=== PATIENT | female | born 1940 | race Caucasian/White ===

== ENCOUNTER 2016-12-31 13:32 | Emergency (ER) | payer OTHER ==
[~2016-12-31] VITALS: Ht 149.9 cm; Wt 73.2 kg
[~2016-12-31 13:32] MED LIST: ACET500T84 PO; DOCU100T7 PO; OMEP20CA16 PO; RANI-347 PO; REG5/5 PO; VERA240T94 PO; [UNRECOGNIZED DRUG - CODE]; [UNRECOGNIZED DRUG - OTHER]
[2016-12-31 13:45] VITALS: Ht 149.9 cm; Wt 73.2 kg
[2016-12-31] MEDS ORDERED: ACETAMINOPHEN 500 MG TAB PO STA (17:37)
--- NOTE | 2016-12-31 18:52 | RADRPT ---
PROCEDURE: CT Brain without contrast. CLINICAL INDICATION: Trauma. Headache. TECHNIQUE: A CT of the brain without contrast was performed utilizing axial sections from the skul l base through the vertex. The patient was scanned without intravenous contrast enhancement. Sagitta l and coronal reformatted images were obtained using the data from the axial images. Total exam DLP is 634.23 mGy-cm. CTDIvol is 38.20 mGy. One or more of the following dose reduction techniques we re used: Automated exposure control, adjustment of the mA and/or kV according to patient size, use o f iterative reconstruction technique. COMPARISON: None available FINDINGS: There is normal kumar-white matter differentiation. There is mild enlargement of the ventricles and subarachnoid spaces consistent with atrophy. There is no intracranial hemorrhage or space-occupying lesion. There is no skull fracture or lytic lesion. IMPRESSION: 1. Mild atrophy. 2. No intracranial hemorrhage. 3. Otherwise normal noncontrast CT scan of the brain. RPTAT: QQ .Kirill Dawn MD, MD Date Time Electronically viewed and signed by .Kirill Dawn MD, on 12/31/2016 18:51 .R/
--- NOTE | 2016-12-31 18:56 | RADRPT ---
PROCEDURE: CT cervical spine without contrast. CLINICAL INDICATION: Trauma, neck pain. TECHNIQUE: A CT of the cervical spine was performed without intravenous contrast. Coronal and sag ittal reformats were generated. CTDIvol: 22.26 mGy. DLP: 114.62 mGy-cm. COMPARISON: No prior studies are available for comparison. FINDINGS: There is a normal cervical lordosis. There is grade 1 degenerative C3 and C4 anterolisthesis. The v ertebral body heights are maintained. No fracture or subluxation is seen. The prevertebral soft ti ssues are normal. There is borderline spinal canal stenosis at C3-C4 and C4-C5. Mild spinal canal stenosis is noted a t C5-C6 secondary to disk osteophyte. Moderate left neural foraminal narrowing is noted at C3-C4 and C4-C5. There is severe bilateral neural foraminal narrowings at C5-C6 secondary to uncovertebral j oint hypertrophy. The soft tissue structures of the neck are unremarkable. There is scarring at the right lung apex. IMPRESSION: 1. No fracture or subluxation of the cervical spine. 2. Borderline spinal canal stenosis and moderate left neural foraminal narrowings at C3-C4 and C4-C 5. 3. Mild spinal canal stenosis and severe bilateral neural foraminal narrowings at C5-C6. RPTAT: HTAR .Arnaud Oliveira MD, MD Date Time Electronically viewed and signed by .Arnaud Oliveira MD, on 12/31/2016 18:55 .R/
[2016-12-31] MEDS ORDERED: ACET500C5 PO (19:13)
--- NOTE | 2016-12-31 19:16 | ERD ---
ER Documentation Chief Complaint Date/Time DATE: 12/31/16 TIME: 19:15 Chief Complaint Pt with GLF hit a metal stand. pt presents with [place]. HPI This [id number] female presents with her daughter after tripping today and hitting the top of her head. There is some swelling on the top of her head. There is no history of loss of consciousness, vomiting, visual changes, weakness , abnormal behavior. Fall was due to trip and there is no history of shortness of breath or chest pain or additional causes of fall. ROS All systems reviewed and are negative except as per history of present illness. Medications Home Meds Active Scripts Acetaminophen* (Tylophen*) 500 Mg Capsule, 1 CAP PO Q6H Y for PAIN AND OR ELEVATED TEMP, #15 CAP Prov:ABE ROLDAN MD 12/31/16 Reported Medications Metoclopramide Hcl (Metoclopramide) 5 Mg/5 Ml Soln, 60 MG PO DAILY 02/11/13 Acetaminophen (Q-Pap Extra Strength) 500 Mg Tablet, 500 MG PO DAILY 02/11/13 Docusate Sodium (Docusate Sodium) 100 Mg Tablet, 100 MG PO DAILY 02/11/13 Omeprazole* (Omeprazole*) 20 Mg Capsule.dr, 20 MG PO DAILY 10/04/12 [Colipax] No Conflict Check, NEEDED 12/13/11 Ranitidine Hcl* (Ranitidine Hcl*) 75 Mg Tablet, 75 MG PO NEEDED 12/13/11 Verapamil Hcl* (Verapamil Hcl*) 240 Mg Tablet.sa, 240 MG PO DAILY 12/13/11 Verapamil Hcl (Calan Sr) 240 Mg Tablet.sa 02/12/11 Allergies Allergies: Coded Allergies: morphine (Verified Allergy, Mild, RASH, 06/11/12) PMhx/Soc History of Surgery: Yes Anesthesia Reaction: No Hx Neurological Disorder: No Hx Respiratory Disorders: No Hx Cardiac Disorders: Yes (HTN) Hx Psychiatric Problems: No Hx Miscellaneous Medical Probl: Yes Hx Alcohol Use: No Hx Substance Use: No Hx Tobacco Use: No Smoking Status: Never smoker Physical Exam Vitals Vital Signs Date Time Temp Pulse Resp B/P Pulse Ox O2 Delivery O2 Flow Rate FiO2 12/31/16 13:45 98.2 75 16 163/91 95 Physical Exam Const: [] Alert, [id number] Head: There is a small hematoma in the right frontoparietal area. There is no appreciable step-offs Eyes: Normal Conjunctiva ENT: Normal External Ears, Nose and Mouth. Neck: Full range of motion..~ No meningismus. Neck nontender without deformities Resp: Clear to auscultation bilaterally Cardio: Regular rate and rhythm, no murmurs Abd: Soft, non tender, non distended. Normal bowel sounds Skin: No petechiae or rashes Back: No midline or flank tenderness Ext: No cyanosis, or edema Neur: Awake and alert. Normal gait. No appreciable focal neurologic deficits per Psych: Normal Mood and Affect Results 24 hrs Current Medications Medications (Trade) Dose Ordered Sig/Soham Route PRN Reason Start Time Stop Time Status Last Admin Dose Admin Acetaminophen (Tylenol Tab) 500 mg ONCE STAT PO 12/31/16 17:37 12/31/16 17:38 DC 12/31/16 17:42 Procedures/MDM CT brain and cervical spine shows no acute abnormality such as bleeding or fracture. There are degenerative changes of the cervical spine. Patient presents with signs of head injury without evidence of bleeding, fracture, neurologic deficit, additional findings to her fall today. She will be discharged home with prescription of Tylenol and further observation. The child was stable with no new complaints during the ER course. The patient was stable with no new complaints during the ER course. Clinically, there is no current evidence to suggest meningitis, sepsis, acute abdomen, pneumonia, acute coronary syndrome, pulmonary embolism, or any other emergent condition appearing to require further evaluation or hospitalization. The patient should certainly return for any new or worsening symptoms per the aftercare instructions. They should otherwise follow-up with her primary care doctor for reevaluation this week. Departure Diagnosis: Primary Impression: Acute head injury Encounter type: initial encounter Qualified Code: S09.90XA - Acute head injury, initial encounter Condition: Stable Patient Instructions: HEAD INJURY, No Wake-Up (Adult) Additional Instructions: Examines normal hoy. Cheque otro vez con yang doctor primario en el proximo cruz or regresa para mas o nueva simptomas. ABE ROLDAN MD Dec 31, 2016 19:16
[2016-12-31 19:29] VITALS: BP 131/78; PULSE 74; RESP 18
== END 2016-12-31 19:30 | disposition home or self-care (01) ==
LOC: FTE 13:32
DX: S09.90XA Unspecified injury of head, initial encounter (principal); I10 Essential (primary) hypertension; R51 Headache; W01.198A Fall on same level from slipping, tripping and stumbling with subsequent striking against other object, initial encounter; Y92.9 Unspecified place or not applicable
CPT/HCPCS: 70450; 72125; Z7502; Z7610

== ENCOUNTER 2017-05-01 18:14 | Emergency (ER) | payer OTHER ==
[~2017-05-01] VITALS: Wt 80.0 kg
[~2017-05-01 18:14] MED LIST changes: +ACET500C5 PO
[2017-05-01] MEDS ORDERED: IBUPROFEN 600 MG TAB PO ONE (20:30)
--- NOTE | 2017-05-01 21:11 | RADRPT ---
PROCEDURE: XR Hip. CLINICAL INDICATION: Right hip pain. TECHNIQUE: AP and frog lateral views of the right hip were performed. COMPARISON: None. FINDINGS: There is normal mineralization and alignment. 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 No fracture or osseous lesion is identified. There are normal joints wi thout evidence of arthritis or effusion. The soft tissues are unremarkable. IMPRESSION: No acute fracture. RPTAT: UU Physician Abimael Date Time Electronically viewed and signed by Physician Abimael on 05/01/2017 21:10 RS/
[2017-05-01] MEDS ORDERED: NAPR-260 PO (21:18)
--- NOTE | 2017-05-02 00:50 | ERD ---
ER Documentation Chief Complaint Date/Time DATE: 05/02/17 TIME: 00:47 Chief Complaint RIGHT HIP PAIN S/P GLF 2 WEEKS AGO HPI This patient is a 68-year-old female with past medical history of hypertension presenting to the emergency department with complaints of right hip pain after a ground-level fall approximately 2 weeks ago. The patient went to her primary care doctor and was prescribed pain medication but no x-ray images were obtained. The patient has had difficulty ambulating alone and has had to use a walker. Pain is worsening now. The patient denies any loss of bowel or bladder function, back pain, loss of consciousness, or other symptoms or injuries. ROS All systems reviewed and are negative except as per history of present illness. Medications Home Meds Active Scripts Naproxen* (Naprosyn*) 500 Mg Tablet, 500 MG PO BID Y for PAIN AND/OR INFLAMMATION, #30 TAB Prov:YASSINE PETTY PA-C 05/01/17 Acetaminophen* (Tylophen*) 500 Mg Capsule, 1 CAP PO Q6H Y for PAIN AND OR ELEVATED TEMP, #15 CAP Prov:ABE ROLDAN MD 12/31/16 Reported Medications Metoclopramide Hcl (Metoclopramide) 5 Mg/5 Ml Soln, 60 MG PO DAILY 02/11/13 Acetaminophen (Q-Pap Extra Strength) 500 Mg Tablet, 500 MG PO DAILY 02/11/13 Docusate Sodium (Docusate Sodium) 100 Mg Tablet, 100 MG PO DAILY 02/11/13 Omeprazole* (Omeprazole*) 20 Mg Capsule.dr, 20 MG PO DAILY 10/04/12 [Colipax] No Conflict Check, NEEDED 12/13/11 Ranitidine Hcl* (Ranitidine Hcl*) 75 Mg Tablet, 75 MG PO NEEDED 12/13/11 Verapamil Hcl* (Verapamil Hcl*) 240 Mg Tablet.sa, 240 MG PO DAILY 12/13/11 Verapamil Hcl (Calan Sr) 240 Mg Tablet.sa 02/12/11 Allergies Allergies: Coded Allergies: morphine (Verified Allergy, Mild, RASH, 06/11/12) PMhx/Soc History of Surgery: Yes (hernia repair x6, appendectomy) Anesthesia Reaction: No Hx Neurological Disorder: No Hx Respiratory Disorders: No Hx Cardiac Disorders: Yes (HTN) Hx Psychiatric Problems: No Hx Miscellaneous Medical Probl: Yes (gastritis) Hx Alcohol Use: No Hx Substance Use: No Hx Tobacco Use: No Smoking Status: Never smoker Physical Exam Vitals Vital Signs Date Time Temp Pulse Resp B/P Pulse Ox O2 Delivery O2 Flow Rate FiO2 05/01/17 18:17 98.4 74 17 135/89 96 Physical Exam Const: Nontoxic, well-appearing female in no acute distress. Head: Atraumatic Eyes: Normal Conjunctiva ENT: Normal External Ears, Nose and Mouth. Neck: Full range of motion..~ No meningismus. Resp: Clear to auscultation bilaterally Cardio: Regular rate and rhythm, no murmurs Abd: Soft, non tender, non distended. Normal bowel sounds Skin: No petechiae or rashes Back: No midline or flank tenderness Ext: The patient has limited flexion and extension of the right hip secondary to pain. The right lower extremity does not appear shortened or externally rotated. There is no significant bruising noted about the hip joint. Neur: Awake and alert Psych: Normal Mood and Affect Results 24 hrs Current Medications Medications (Trade) Dose Ordered Sig/Soham Route PRN Reason Start Time Stop Time Status Last Admin Dose Admin Ibuprofen (Motrin) 600 mg ONCE ONCE PO 05/01/17 20:30 05/01/17 20:31 DC 05/01/17 20:13 [place] [id number] Radiology Main Line: [phone] DIAGNOSTIC IMAGING REPORT Patient: HIRAM VILLALTA : 1940 Age: 76 Sex: F MR #: [id number] DOS: 05/01/17 0000 Ordering MD: YASSINE PETTY PA-C Location: [facility] Room/Bed: PROCEDURE: XR Hip. CLINICAL INDICATION: Right hip pain. TECHNIQUE: AP and frog lateral views of the right hip were performed. COMPARISON: None. FINDINGS: There is normal mineralization and alignment. Mild coxa profunda. 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 No fracture or osseous lesion is identified. There are normal joints without evidence of arthritis or effusion. The soft tissues are unremarkable. IMPRESSION: No acute fracture. RPTAT: UU Leonor Lange Physician Date Time Electronically viewed and signed by Leonor Lange Physician on 05/01/2017 21:10 RS/ CC: YASSINE PETTY PA-C Procedures/MDM 68-year-old female presenting to the emergency department with complaints of right hip pain after ground-level fall approximately 2 weeks ago. X-ray images were negative for hip fracture or other acute abnormalities. These were interpreted by the radiologist. The patient was medicated with ibuprofen in the department. The patient was stable for outpatient management with a prescription for naproxen. She was advised to have close follow-up with a primary care physician and possibly an technician inventory specialist or physical therapist. She understood and agreed with the discharge plan and diagnosis. Strict ER return precautions were discussed. I will suspicion for hip fracture , septic joint, or other osseous abnormalities or emergent conditions. Departure Diagnosis: Primary Impression: Hip pain Condition: Fair Patient Instructions: How Your Hip Works, Hip Precautions, Hip Strain Additional Instructions: No mas mejor en 2-3 cruz, regresar. Mas peor en 24 horas, regresear rapidamente. Ir a doctor primario in 5-7 cruz. Usar instrucciones cuando verónica medicamento. YASSINE PETTY PA-C May 02, 2017 00:50
== END 2017-05-01 22:04 | disposition home or self-care (01) ==
LOC: FTE 18:14
DX: M25.551 Pain in right hip (principal); I10 Essential (primary) hypertension
CPT/HCPCS: 73510; Z7610

== ENCOUNTER → 2018-12-23 | Outpatient (CLI) | payer OTHER ==
[~2018-12-23] MED LIST changes: +AMLO5TAB4 PO; +ASPI-1044 PO; +GABA300C16 PO; +HYDR25TA6 PO; +LOSA50TA14 PO; +NAPR-985 PO; +OXYC-481 PO; +PANT40TA4 PO; -RANI-347 PO; +RANI-513 PO
--- NOTE | 2018-12-24 08:07 | RADRPT ---
PROCEDURE: XR Knees. CLINICAL INDICATION: Preoperative. Bilateral knee pain. TECHNIQUE: Total of eight views. Weightbearing frontal, oblique, and lateral views of the both kne es. Patellar views of both knees. COMPARISON: Left knee radiographs dated 07/19/2007. FINDINGS: There is no fracture or dislocation. Vascular calcifications are present consistent with atherosclerosis. There are degenerative changes with osteophytes arising from all 3 joint compartment margins bilatera lly. There is bilateral lateral joint compartment narrowing and deformity with right worse than left. There is no lytic or blastic lesion. There is no radiopaque foreign body. IMPRESSION: 1. Severe degenerative changes of both knees with right worse than left. 2. Atherosclerosis. 3. Otherwise unremarkable images of both knees. RPTAT: QQ .Kirill Dawn MD, Date Time Electronically viewed and signed by .Kirill Dawn MD, on 12/24/2018 08:07 .R/
--- NOTE | 2018-12-24 08:09 | RADRPT ---
PROCEDURE: Limited x-ray of both lower extremities. CLINICAL INDICATION: Bilateral leg pain. TECHNIQUE: Single frontal view of both lower extremities was obtained from the hips to the calves. COMPARISON: None. FINDINGS: The right femur measures 51 cm. The left femur measures 54 cm. The right tibia measures 43 cm. The left tibia measures 43 cm. There are severe degenerative changes of both knees with associated valgus deformity. IMPRESSION: 1. Leg length measurements as described above. 2. Severe degenerative changes of both knees with associated valgus deformity. RPTAT: QQ .Kirill Dawn MD, MD Date Time Electronically viewed and signed by .Kirill Dawn MD, on 12/24/2018 08:09 .R/
== END | disposition home or self-care (01) ==
LOC: HKI 13:34
PROVIDERS: ATTEND Orthopaedic Surgery Adult Reconstructive Orthopaedic Surgery
DX: M25.569 Pain in unspecified knee (principal); M17.10 Unilateral primary osteoarthritis, unspecified knee
CPT/HCPCS: 73564; 77073

== ENCOUNTER 2018-12-24 06:36 | Inpatient (IN) | payer OTHER ==
[2018-12-24] VITALS (33 sets, daily range): BP systolic 95–157; BP diastolic 46–79; PULSE 58–92; RESP 13–23; Ht 152.4 cm; Wt 72.9 kg
[~2018-12-24] VITALS: Ht 152.4 cm; Wt 72.9 kg
[~2018-12-24 06:36] MED LIST changes: -AMLO5TAB4 PO; -ASPI-1044 PO; -GABA300C16 PO; -HYDR25TA6 PO; -LOSA50TA14 PO; -OXYC-481 PO; -PANT40TA4 PO
[2018-12-24] MEDS ORDERED: ACETAMINOPHEN 500 MG TAB PO ONE (09:00)
[2018-12-24] MEDS ORDERED: DEXAMETHASONE 4 MG/ML 1 ML INJ IV ONE (09:00)
[2018-12-24] MEDS ORDERED: TOTAL KNEE REPLACEMENT PAIN COCKTAIL IRR ONE ×5 (09:00)
[2018-12-24] MEDS ORDERED: LANSOPRAZOLE 30 MG CAP PO ONE (09:00)
[2018-12-24] MEDS ORDERED: ONDANSETRON 4 MG INJ IV ONE (09:00)
[2018-12-24] MEDS ORDERED: GABAPENTIN 300 MG CAP PO ONE (09:00)
[2018-12-24] MEDS ORDERED: TRANEXAMIC ACID 1GM/100ML(PMX) 100 ML PRE-OP X1 IVPB ONE (09:00)
[2018-12-24] MEDS ORDERED: LACTATED RINGER'S 1,000 ML IV* SCH (09:00)
[2018-12-24] MEDS ORDERED: CELECOXIB 200 MG CAP PO ONE (09:00)
[2018-12-24] MEDS ORDERED: CEFAZOLIN 2 GM/50 ML (PMX) 50 ML IVPB ONE (09:00)
[2018-12-24] MEDS ORDERED: TRANEXAMIC ACID 1GM/100ML(PMX) 100 ML INTRA-OP X1 IVPB ONE (09:00)
[2018-12-24] MEDS ORDERED: AMLO5TAB4 PO (10:53)
[2018-12-24] MEDS ORDERED: HYDR25TA6 PO (10:53)
[2018-12-24] MEDS ORDERED: LOSA50TA14 PO (10:53)
[2018-12-24] MEDS ORDERED: GABA300C16 PO (10:54)
[2018-12-24] MEDS ORDERED: ACETAMINOPHEN 1000MG/100ML IV 100 ML IVPB ONE (12:00)
[2018-12-24] MEDS ORDERED: BACITRACIN 50000 UNITS INJ ONE (12:03)
[2018-12-24] MEDS ORDERED: POLYMYXIN/BACITRACIN 1L IRRIG ONE (12:03)
--- NOTE | 2018-12-24 12:24 | PREAC ---
Date/Time of Note Date/Time of Note DATE: 12/24/18 TIME: 12:24 Anesthesia Eval and Record Evaluation Time Pre-Procedure Interview DATE: 12/24/18 TIME: 12:24 Age 78 Sex female NPO: 8 hrs Preoperative diagnosis Knee OA Planned procedure TKR Past Medical History Past Medical History: Includes Cardio: HTN GI: Obesity Surgery & Anesthesia Issues No known issue Meds Anticoagulation: No Beta Jailyn within 24 hr: No Reason Beta Jailyn not given: Pt. not on B-Jailyn Reported Medications Gabapentin* (Gabapentin*) 300 Mg Capsule, 300 MG PO QHS, #60 CAP 12/24/18 Losartan Potassium* (Losartan Potassium*) 50 Mg Tablet, 50 MG PO DAILY, TAB 12/24/18 Hydrochlorothiazide* (Hydrochlorothiazide*) 25 Mg Tab, 25 MG PO DAILY, #30 TAB 12/24/18 Amlodipine Besylate* (Norvasc*) 5 Mg Tablet, 5 MG PO DAILY, TAB 12/24/18 Discontinued Reported Medications Metoclopramide Hcl (Metoclopramide) 5 Mg/5 Ml Soln, 60 MG PO DAILY 02/11/13 Acetaminophen (Q-Pap Extra Strength) 500 Mg Tablet, 500 MG PO DAILY 02/11/13 Docusate Sodium (Docusate Sodium) 100 Mg Tablet, 100 MG PO DAILY 02/11/13 Omeprazole* (Omeprazole*) 20 Mg Capsule.dr, 20 MG PO DAILY 10/04/12 [Colipax] No Conflict Check, NEEDED 12/13/11 Ranitidine Hcl* (Ranitidine Hcl*) 75 Mg Tablet, 75 MG PO NEEDED 12/13/11 Verapamil Hcl* (Verapamil Hcl*) 240 Mg Tablet.sa, 240 MG PO DAILY 12/13/11 Verapamil Hcl (Calan Sr) 240 Mg Tablet.sa 02/12/11 Discontinued Scripts Naproxen* (Naprosyn*) 500 Mg Tablet, 500 MG PO BID PRN for PAIN AND/OR INFLAMMATION, #30 TAB Prov:YASSINE PETTY PA-C 05/01/17 Acetaminophen* (Tylophen*) 500 Mg Capsule, 1 CAP PO Q6H PRN for PAIN AND OR ELEVATED TEMP, #15 CAP Prov:ABE ROLDAN MD 12/31/16 Current Medications Lactated Ringer's 1,000 ml @ 125 mls/hr Q8H IV* ; Start 2/19/19 at 09:00; Stop 12/24/18 at 16:59 Meds reviewed: Yes Allergies Coded Allergies: morphine (Verified Allergy, Mild, RASH, 12/24/18) Allergies Reviewed: Yes Labs/Studies Labs Reviewed: Reviewed by anesthesiologist test: Negative Studies: ECG Pre-procedure Exam Last vitals Vital Signs Date Temp Pulse Resp B/P (MAP) Pulse Ox O2 O2 Flow FiO2 Time Delivery Rate 12/24/18 98.5 92 18 157/79 95 Room Air 12:04 (105) Airway: Adequate mouth opening, Adequate thyromental dist Mallampati: Mallampati II Teeth: Normal Lung: Normal Heart: Normal ASA Physical Status ASA physical status: 2 Emergency: None Planned Anesthetic General/MAC: Mask, ETT Neuraxial: Spinal Planned Pain Management Sub-arachniod narcotics Pre-operative Attestations Prior to commencing anesthesia and surgery, the patient was re-evaluated, there was verification of: *The patient's identity *The results of appropriate recent lab work and preoperative vital signs *The above evaluation not changing prior to induction *Anesthetic plan, risk benefits, alternative and complications discussed with patient/family; questions answered; patient/family understands, accepts and wishes to proceed. DIONNE PACHECO Dec 24, 2018 12:24
--- NOTE | 2018-12-24 12:28 | HPN ---
Date/Time of Note Date/Time of Note DATE: 12/24/18 TIME: 12:28 Interval H&P Admission Note Pt. seen H&P reviewed: No system changes Patient denies fever, chills, shortness of breath, chest pain, nausea/vomiting, constipation, diarrhea, numbness, and tingling. MUSCULOSKELETAL: Right extremity Skin intact Sensation intact to light touch in a sural, saphenous, deep peroneal, superficial peroneal, medial and lateral plantar nerve distribution. Motor is intact, patient able to dorsiflex and plantarflex ankle and extend and flex great toe. Dorsalis Pedis pulse +2, Brisk capillary refill. Compartments are soft. Calves non-tender to palpation bilaterally. MYNOR LORD MD Dec 24, 2018 12:28
[2018-12-24] MEDS ORDERED: DIPHENHYDRAMINE 50 MG INJ IV PRN ×2 (12:30→16:30)
[2018-12-24] MEDS ORDERED: METOCLOPRAMIDE 10 MG INJ IV PRN (12:30)
[2018-12-24] MEDS ORDERED: ONDANSETRON 4 MG INJ IV PRN (12:30)
[2018-12-24] MEDS ORDERED: MEPERIDINE 25 MG INJ IV PRN (12:30)
[2018-12-24] MEDS ORDERED: HYDROmorphONE 1 MG/5 ML IV SYRINGE IV PRN ×3 (12:30)
[2018-12-24] MEDS ORDERED: ALBUTEROL 0.083% (NEB) 2.5 MG/3 ML AMP HHN PRN (12:30)
[2018-12-24] MEDS ORDERED: FENTAnyl 50 MCG/ML VIAL IV PRN ×2 (12:30)
[2018-12-24] MEDS ORDERED: MIDAZOLAM 1 MG/ML 2 ML INJ ONE (12:31)
[2018-12-24] MEDS ORDERED: MAGNESIUM HYDROXIDE 30ML CUP PO PRN (16:30)
[2018-12-24] MEDS ORDERED: oxyCODONE 5 MG TAB PO PRN ×2 (16:30)
[2018-12-24] MEDS ORDERED: NACL 0.9% 3 ML SYG IV SCH (16:30)
[2018-12-24] MEDS ORDERED: BISACODYL 10 MG SUPP PR PRN (16:30)
[2018-12-24] MEDS ORDERED: NA PHOSPHATE/BIPHOS 133 ML ENEMA PR PRN (16:30)
[2018-12-24] MEDS ORDERED: NALOXONE (0.4 MG/ML) INJ IV PRN (16:30)
[2018-12-24] MEDS ORDERED: HYDROmorphONE 1 MG/ML SYG IV PRN (16:30)
[2018-12-24] MEDS ORDERED: DOCUSATE SODIUM 100 MG CAP PO ONE (16:30)
--- NOTE | 2018-12-24 16:46 | CONS ---
Assessment/Plan Assessment/Plan Assessment/Plan (Daily) 78 yo obese woman with history of HTN admitted after elevated R knee arthroplasty. #R knee arthroplasty - Agree with admission to [facility], - PT, OT, analgesia per ortho #HTN - Continue home HCTZ, norvasc, losartan #Neuropathy - Continue home gabapentin Will continue to follow. Consultation Date/Type/Reason Admit Date/Time Dec 24, 2018 at 06:36 Date of Consultation: Dec 24, 2018 Type of Consult Internal Medicine Reason for Consultation Postoperative management Requesting Provider: MYNOR LORD MD Date/Time of Note DATE: 12/24/18 TIME: 16:40 Hx of Present Illness Ms. Fatima is an obese 78 yo woman admitted for elective R total knee arthroplasty. She has severe R knee arthritis as well as HTN, GERD, and history of diverticulosis which are managed medically. Postoperatively she is still drowsy from anesthesia, has no complaints. Subjective hx not possible: pt non-verbal Past Medical History HTN GERD History of diverticulosis Osteoporosis Osteoarthritis of the R knee Home Meds Reported Medications Gabapentin* (Gabapentin*) 300 Mg Capsule, 300 MG PO QHS, #60 CAP 12/24/18 Losartan Potassium* (Losartan Potassium*) 50 Mg Tablet, 50 MG PO DAILY, TAB 12/24/18 Hydrochlorothiazide* (Hydrochlorothiazide*) 25 Mg Tab, 25 MG PO DAILY, #30 TAB 12/24/18 Amlodipine Besylate* (Norvasc*) 5 Mg Tablet, 5 MG PO DAILY, TAB 12/24/18 Discontinued Reported Medications Metoclopramide Hcl (Metoclopramide) 5 Mg/5 Ml Soln, 60 MG PO DAILY 02/11/13 Acetaminophen (Q-Pap Extra Strength) 500 Mg Tablet, 500 MG PO DAILY 02/11/13 Docusate Sodium (Docusate Sodium) 100 Mg Tablet, 100 MG PO DAILY 02/11/13 Omeprazole* (Omeprazole*) 20 Mg Capsule.dr, 20 MG PO DAILY 10/04/12 [Colipax] No Conflict Check, NEEDED 12/13/11 Ranitidine Hcl* (Ranitidine Hcl*) 75 Mg Tablet, 75 MG PO NEEDED 12/13/11 Verapamil Hcl* (Verapamil Hcl*) 240 Mg Tablet.sa, 240 MG PO DAILY 12/13/11 Verapamil Hcl (Calan Sr) 240 Mg Tablet.sa 02/12/11 Discontinued Scripts Naproxen* (Naprosyn*) 500 Mg Tablet, 500 MG PO BID PRN for PAIN AND/OR INFLAMMATION, #30 TAB Prov:YASSINE PETTY PA-C 05/01/17 Acetaminophen* (Tylophen*) 500 Mg Capsule, 1 CAP PO Q6H PRN for PAIN AND OR ELEVATED TEMP, #15 CAP Prov:ABE ROLDAN MD 12/31/16 Medications Current Medications Lactated Ringer's 1,000 ml @ 125 mls/hr Q8H IV* ; Start 12/24/18 at 09:00; Stop 12/24/18 at 16:59 Hydromorphone HCl (Dilaudid) 0.2 mg PACU PRN IV MILD PAIN 1-3; Start 12/24/18 at 12:30; Stop 12/24/18 at 18:00 Hydromorphone HCl (Dilaudid) 0.4 mg PACU PRN IV MOD PAIN 4-6 Last administered on 12/24/18at 16:26; Admin Dose 0.4 MG; Start 12/24/18 at 12:30; Stop 12/24/18 at 18:00 Hydromorphone HCl (Dilaudid) 0.6 mg PACU PRN IV SEVERE PAIN 7-10; Start 12/24/18 at 12:30; Stop 12/24/18 at 18:00 Fentanyl (Sublimaze) 25 mcg PACU ORDER PRN IV MILD PAIN 1-3; Start 12/24/18 at 12:30; Stop 12/24/18 at 18:00 Fentanyl (Sublimaze) 50 mcg PACU ORDER PRN IV MOD PAIN 4-6; Start 12/24/18 at 12:30; Stop 12/24/18 at 18:00 Ondansetron HCl (Zofran Inj) 4 mg PACU ORDER PRN IV NAUSEA/VOMITING; Start 12/24/18 at 12:30; Stop 12/24/18 at 18:00 Metoclopramide HCl (Reglan) 10 mg PACU ORDER PRN IV NAUSEA/VOMITING; Start 12/24/18 at 12:30; Stop 12/24/18 at 18:00 Albuterol (Proventil 0.083% (Neb)) 2.5 mg PACU ORDER PRN HHN .WHEEZING; Start 12/24/18 at 12:30; Stop 12/24/18 at 18:00 Meperidine HCl (Demerol) 25 mg PACU ORDER PRN IV .RIGORS; Start 12/24/18 at 12:30; Stop 12/24/18 at 18:00 Diphenhydramine HCl (Benadryl) 25 mg PACU ORDER PRN IV .PRURITUS; Start 12/24/18 at 12:30; Stop 12/24/18 at 18:00 Lactated Ringer's 1,000 ml @ 80 mls/hr [id number] IV ; Start 12/24/18 at 16:20; Status UNV IV Flush (NS 3 ml) 3 ml PER PROTOCOL IV ; Start 12/24/18 at 16:30; Status UNV Oxycodone HCl (Roxicodone) 15 mg Q4H PRN PO .PAIN; Start 12/24/18 at 16:30; Status UNV Oxycodone HCl (Roxicodone) 10 mg Q4H PRN PO .PAIN; Start 12/24/18 at 16:30; Status UNV Oxycodone HCl (Roxicodone) 5 mg Q4H PRN PO .PAIN; Start 12/24/18 at 16:30; Status UNV Hydromorphone HCl (Dilaudid) 1 mg Q3H PRN IV .BREAKTHROUGH PAIN; Start 12/24/18 at 16:30; Status UNV Acetaminophen (Tylenol Tab) 1,000 mg Q8 PO ; Start 12/25/18 at 22:00; Status UNV Acetaminophen 100 ml @ 400 mls/hr Q8H IVPB ; Start 12/24/18 at 16:30; Stop at 08:44; Status UNV Ondansetron HCl (Zofran Inj) 4 mg Q4H PRN IV NAUSEA/VOMITING; Start 12/25/18 at 16:30; Status UNV Cefazolin Sodium/ Dextrose 50 ml @ 100 mls/hr Q8H IVPB ; Start 12/24/18 at 16:30; Stop 12/25/18 at 08:59; Status UNV Gabapentin (Neurontin) 300 mg QHS PO ; Start 12/24/18 at 21:00; Status UNV Dexamethasone (Decadron) 10 mg ONCE ONCE IV ; Start 12/25/18 at 07:00; Stop 12/25/18 at 07:01; Status UNV Pantoprazole (Protonix Tab) 40 mg DAILY@06 PO ; Start 12/26/18 at 06:00; Status UNV Docusate Sodium (Colace) 200 mg NOW ONCE PO ; Start 12/24/18 at 16:30; Stop 12/24/18 at 16:31; Status UNV Docusate Sodium (Colace) 200 mg BID PO ; Start 12/25/18 at 09:00; Stop 12/28/18 at 08:59; Status UNV Simethicone (Mylicon) 80 mg TID PRN PO .GAS; Start 12/24/18 at 16:30; Status UNV Senna/Docusate Sodium (Senokot-S) 2 tab BID PRN PO .CONSTIPATION; Start 12/24/18 at 16:30; Status UNV Magnesium Hydroxide (Milk Of Mag) 30 ml HS PRN PO .CONSTIPATION; Start 12/24/18 at 16:30; Status UNV Bisacodyl (Dulcolax Supp) 10 mg DAILY PRN ME .CONSTIPATION; Start 12/24/18 at 16:30; Status UNV Sodium Biphosphate/ Sodium Phosphate (Fleet Enema) 133 ml DAILY PRN ME .CONSTIPATION; Start 12/24/18 at 16:30; Status UNV Diphenhydramine HCl (Benadryl) 25 mg Q4H PRN IV .ITCHING; Start 12/24/18 at 16:30; Status UNV Naloxone HCl (Narcan) 0.2 mg Q2M PRN IV .RESP RATE; Start 12/24/18 at 16:30; Status UNV Bethanechol Chloride (Urecholine) 25 mg URINARY CATH D/C PRN PO UNABLE TO VOID; Start 12/24/18 at 16:30; Status UNV Aspirin (Halfprin) 81 mg BID PO ; Start 12/25/18 at 09:00; Status UNV Allergies: Coded Allergies: morphine (Verified Allergy, Mild, RASH, 12/24/18) Past Surgical History Appendectomy Hysterectomy 2013: Abdominal surgery 2019: R knee arthroplasty Social History Alcohol Use: none Smoking Status: Never smoker Drug Use: none Exam/Review of Systems Exam Vitals Vital Signs Date Temp Pulse Resp B/P (MAP) Pulse Ox O2 O2 Flow FiO2 Time Delivery Rate 12/24/18 98.0 16:14 12/24/18 92 18 157/79 95 Room Air 12:04 (105) Intake and Output 12/23/18 12/23/18 12/24/18 1414:59 22:59 06:59 IntakeIntake Total 1000 ml BalanceBalance 1000 ml Exam Gen: Elderly woman, obese, lying in gurney, no distress. Eyes: PERRL, no icterus HEENT: Moist mucous membranes, atraumatic Neck: No JVD, no lymphadenopathy Card: Regular rate and rhythm, no murmurs Pulm: Even, unlabored respirations, clear to auscultation throughout with no crackles. Abd: Soft, nontender, nondistended, no palpable hepatosplenomegaly. Ext: R knee bandaged. L knee no cyanosis/clubbing/edema Skin: warm, dry, well perfused. Medications Medication Current Medications Lactated Ringer's 1,000 ml @ 125 mls/hr Q8H IV* ; Start 12/24/18 at 09:00; Stop 12/24/18 at 16:59 Hydromorphone HCl (Dilaudid) 0.2 mg PACU PRN IV MILD PAIN 1-3; Start 12/24/18 at 12:30; Stop 12/24/18 at 18:00 Hydromorphone HCl (Dilaudid) 0.4 mg PACU PRN IV MOD PAIN 4-6 Last administered on 12/24/18at 16:26; Admin Dose 0.4 MG; Start 12/24/18 at 12:30; Stop 12/24/18 at 18:00 Hydromorphone HCl (Dilaudid) 0.6 mg PACU PRN IV SEVERE PAIN 7-10; Start 12/24/18 at 12:30; Stop 12/24/18 at 18:00 Fentanyl (Sublimaze) 25 mcg PACU ORDER PRN IV MILD PAIN 1-3; Start 12/24/18 at 12:30; Stop 12/24/18 at 18:00 Fentanyl (Sublimaze) 50 mcg PACU ORDER PRN IV MOD PAIN 4-6; Start 12/24/18 at 12:30; Stop 12/24/18 at 18:00 Ondansetron HCl (Zofran Inj) 4 mg PACU ORDER PRN IV NAUSEA/VOMITING; Start 12/24/18 at 12:30; Stop 12/24/18 at 18:00 Metoclopramide HCl (Reglan) 10 mg PACU ORDER PRN IV NAUSEA/VOMITING; Start 12/24/18 at 12:30; Stop 12/24/18 at 18:00 Albuterol (Proventil 0.083% (Neb)) 2.5 mg PACU ORDER PRN HHN .WHEEZING; Start 12/24/18 at 12:30; Stop 12/24/18 at 18:00 Meperidine HCl (Demerol) 25 mg PACU ORDER PRN IV .RIGORS; Start 12/24/18 at 12:30; Stop 12/24/18 at 18:00 Diphenhydramine HCl (Benadryl) 25 mg PACU ORDER PRN IV .PRURITUS; Start 12/24/18 at 12:30; Stop 12/24/18 at 18:00 Lactated Ringer's 1,000 ml @ 80 mls/hr [id number] IV ; Start 12/24/18 at 16:20; Status UNV IV Flush (NS 3 ml) 3 ml PER PROTOCOL IV ; Start 12/24/18 at 16:30; Status UNV Oxycodone HCl (Roxicodone) 15 mg Q4H PRN PO .PAIN; Start 12/24/18 at 16:30; Status UNV Oxycodone HCl (Roxicodone) 10 mg Q4H PRN PO .PAIN; Start 12/24/18 at 16:30; Status UNV Oxycodone HCl (Roxicodone) 5 mg Q4H PRN PO .PAIN; Start 12/24/18 at 16:30; Status UNV Hydromorphone HCl (Dilaudid) 1 mg Q3H PRN IV .BREAKTHROUGH PAIN; Start 12/24/18 at 16:30; Status UNV Acetaminophen (Tylenol Tab) 1,000 mg Q8 PO ; Start 12/25/18 at 22:00; Status UNV Acetaminophen 100 ml @ 400 mls/hr Q8H IVPB ; Start 12/24/18 at 16:30; Stop 12/25/18 at 08:44; Status UNV Ondansetron HCl (Zofran Inj) 4 mg Q4H PRN IV NAUSEA/VOMITING; Start 12/25/18 at 16:30; Status UNV Cefazolin Sodium/ Dextrose 50 ml @ 100 mls/hr Q8H IVPB ; Start 12/24/18 at 16:30; Stop 12/25/18 at 08:59; Status UNV Gabapentin (Neurontin) 300 mg QHS PO ; Start 12/24/18 at 21:00; Status UNV Dexamethasone (Decadron) 10 mg ONCE ONCE IV ; Start 12/25/18 at 07:00; Stop 12/25/18 at 07:01; Status UNV Pantoprazole (Protonix Tab) 40 mg DAILY@06 PO ; Start 12/26/18 at 06:00; Status UNV Docusate Sodium (Colace) 200 mg NOW ONCE PO ; Start 12/24/18 at 16:30; Stop 12/24/18 at 16:31; Status UNV Docusate Sodium (Colace) 200 mg BID PO ; Start 12/25/18 at 09:00; Stop 12/28/18 at 08:59; Status UNV Simethicone (Mylicon) 80 mg TID PRN PO .GAS; Start 12/24/18 at 16:30; Status UNV Senna/Docusate Sodium (Senokot-S) 2 tab BID PRN PO .CONSTIPATION; Start 12/24/18 at 16:30; Status UNV Magnesium Hydroxide (Milk Of Mag) 30 ml HS PRN PO .CONSTIPATION; Start 12/24/18 at 16:30; Status UNV Bisacodyl (Dulcolax Supp) 10 mg DAILY PRN ME .CONSTIPATION; Start 12/24/18 at 16:30; Status UNV Sodium Biphosphate/ Sodium Phosphate (Fleet Enema) 133 ml DAILY PRN ME .CONSTIPATION; Start 12/24/18 at 16:30; Status UNV Diphenhydramine HCl (Benadryl) 25 mg Q4H PRN IV .ITCHING; Start 12/24/18 at 16:30; Status UNV Naloxone HCl (Narcan) 0.2 mg Q2M PRN IV .RESP RATE; Start 12/24/18 at 16:30; Status UNV Bethanechol Chloride (Urecholine) 25 mg URINARY CATH D/C PRN PO UNABLE TO VOID; Start 12/24/18 at 16:30; Status UNV Aspirin (Halfprin) 81 mg BID PO ; Start 12/25/18 at 09:00; Status UNV CASPER FISCHER MD Dec 24, 2018 16:46
--- NOTE | 2018-12-24 16:52 | OPR ---
Date/Time of Note Date/Time of Note DATE: 12/24/18 TIME: 16:40 Operative Report Procedure Date: Dec 24, 2018 Preoperative Diagnosis Right knee arthritis Postoperative Diagnosis As above Operation/Procedure Performed Right total knee arthroplasty Surgeon see signature line Global Account Manager Hector AYERS Anesthesia Type: general, spinal Tourniquet Time: 100 minutes Estimated Blood Loss: 10 - 50 ml's Transfusion none Specimen Inflamed synovial tissue for permanent pathology. Grafts/Implants Depuy Sigma Femur: size 2.5 PS Tibia: Size 2.5 Poly insert: size 2.5 PS, 12.5 mm thickness Patella: 32 mm Complications none Pt Condition Post Procedure: stable Disposition: PACU Procedure Description PREOP DIAGNOSIS: Right knee osteoarthritis POSTOP DIAGNOSIS: Same. SURGICAL PROCEDURE: Right total knee arthroplasty. Use of intraoperative navigation CPT CODE: 58779. INDICATIONS AND CONSENT: The patient is a 78 year-old woman, with an orthopaedic history consistent with progressively worsening knee pain. They have maximized nonoperative measures, which have included activity modification, medicines, intra-articular injections. On physical exam, they have valgus alignment, no previous open surgical scars. They have ROM 0-100, no gross ligamentous instability. No significant venous stasis or edema. Distally neurovascular intact. They were offered a knee replacement. A lengthy discussion ensued, where the patient was told that if and when the symptoms are intolerable, elective total knee replacement should be considered. The operative procedure was explained using diagrams and or three-dimensional models. The rehabilitation, the potential risks, benefits and alternatives were discussed at length. Specific risks discussed included but were not limited to excessive blood loss and the need for transfusion and therefore the risk of transmissible disease or transfusion reaction, deep infection and the potential need for repetitive debridements, implant removal, long-term antibiotic therapy, possibly requiring deep venous access, extensor mechanism complications, including subluxation or dislocation, disruption of the quadriceps or patellar tendon, fracture of the patella or avulsion of the tibial tuberosity, femoral, tibial or fibular fracture and the need for further surgery for fixation, neurovascular injury with temporary or permanent numbness, tingling, weakness or paralysis, arterial injury requiring surgery including possible amputation, deep venous thrombosis, pulmonary embolism and , persistent pain, weakness, or limp, late aseptic loosening and the need for revision, polyethylene wear-taisha lynda osteolysis and related problems, post-operative stiffness requiring closed manipulation, and finally, a wide variety of unanticipated medical problems. The opportunity to ask questions and address any concerns was provided. The patient elected to proceed with TKA. FINDINGS: Very inflamed synovial tissue. Poor quality tissue. Ligaments easily attenuated. Bone severely osteoporotic. SURGERY IN DETAIL: Patient was taken into the Operating Room, placed supine on the operating table. Preoperatively, they were given weight-based dosing of Ancef and if MRSA positive vancomycin was given in addition. Tourniquet was placed to the right proximal thigh. Regional anesthesia was administered by Anesthesia Department. Right lower extremity was prepped and draped in sterile fashion. Surgical pause was performed, correctly identifying the patient's name, medical record number, diagnoses, surgical procedure, and laterality of procedure. The leg was elevated, exsanguinated with an Esmarch, tourniquet was inflated to 250 mmHg, remained inflated for 100 minutes, after which it was deflated. An anterior midline incision approximately 15-20 cm in length was made, centered over the patella ending just medial to the tibial tubercle. Skin and subcutaneous tissue sharply dissected down the Allan's fascia superiorly, which was incised in line with skin incision. The quadriceps tendon, medial patellar retinaculum, patellar tendon were visualized. A medial parapatellar arthrotomy was performed. The proximal medial tibia was subperiosteally exposed for a distance of 4 cm from joint line. The deep infrapatellar bursa was incised. The patella was everted and the knee was flexed, while protecting the insertion of patellar tendon. A 3/8-inch curved osteotome was used to enter the semimembranosus bursa at the level of the joint line medially. Medial meniscus was excised at the meniscal-synovial junction. The anterior cruciate ligament was excised. The posterior cruciate ligament was excised with electrocautery from the intercondylar region and a posterior retractor was placed, subluxating the tibia anterolateral to the femur. A hernia was made anterolateral to the lateral meniscus and a right-angle retractor was placed over the anterolateral tibia. A lateral meniscectomy was performed. The inferior lateral geniculate artery was coagulated. The tibia was reduced under the femur. An intramedullary pin was placed for the OrthAlign device. The OrthAlign navigation unit and sensor were calibrated at the back table. The OrthAlign femoral cutting jig was then placed over the central pin, and secured with a medial and lateral pin. The OrthAlign navigation unit and OrthAlign sensor were then attached to the jig. The leg was maneuvered for appropriate capture and calibration. After this was performed, the navigation unit was adjusted for a 0 varus/valgus (neutral mechanical axis) and 2.0-2.5 degree posterior flexion cut. The cutting jig was locked in place. The navigation and sensor unit were then removed. The distal femoral cut was set at 10 mm for the osteotomy . This was then secured with two pins. A distal femoral osteotomy was performed. The OrthAlign femoral jig was then removed. A posterior retractor was placed and an anterolateral retractor was placed on the tibia, subluxating the tibia anterior to the femur. The OrthAlign tibial cutting jig was then applied to the tibia preliminarily with the strap. This was secured with two pins centered over the medial 1/3 of the tibial tubercle. The offset was established proximally at the ACL footprint. This was then matched distally. Registration was then performed, registering the lateral malleolus and the medial malleolus. After this was performed, the malleolar probe was then utilized to help set the appropriate varus/valgus as well as tibial slope. This was then locked into position. The navigation guide and sensor were then removed. The slotted tibial cutting jig was then applied and secured with two pins. A proximal tibia osteotomy was performed. The tibia was then brought to full extension and a 10 mm spacer block was inserted, and felt to be satisfactory extension gap. The knee was flexed again and the tibial alignment guide was then removed. With the knee flexed to 90 degrees a femoral sizing jig was placed on the distal femur and secured, the femur sized to a size 2.5. Due to preoperative valgus deformity is secondary to tibial defect and not hypertrophic femoral condyle, this was then set on being degrees of empiric external rotation, using the posterior condyles. This was parallel to the epicondylar axis. A size 2.5 4-in-1 femoral cutting block was then secured to the femur with two lock pins and an anterior, posterior condylar cut were performed, followed by an anterior chamfer and a posterior chamfer cut. Cutting block was removed. A 10 mm spacer was then inserted at 90 degrees of flexion and this was symmetric with the extension gap. An intercondylar box osteotomy was performed using the box cutting guide. A trial tibial base plate, size 2.5 with a 10 mm cruciate sacrificing polyethylene, and a trial size 2.5 femur were then inserted and the knee was brought to full extension. The patella was everted and the osteochondral junction was exposed. The patella measured 23 mm in thickness. A patellar osteotomy performed leaving 11 mm remnant patella. Three lug holes were drilled for the 32 diameter patellar button. The knee then underwent range of motion, soft tissue tension and patellar tracking, everything was symmetric balanced. The patella tracked centrally. The rotation of the tibial component was marked on the tibia. On the tibia, the modular base plate hole was created with the appropriate drills and punches at previously marked rotation. Secondary to significant osteoporosis was decided a short 30 mm stem should be out of the prosthesis and the reamer was placed to the appropriate depth. It was noted there was significant depression of the anterior medial plateau. Exposed bony surfaces were thoroughly irrigated and dried. Periarticular injection administered. Cement with antibiotics was mixed at the back table. At the appropriate time a nd consistency cement was placed in the keel and onto the tibial plateau. Cement was finger pressurized. Cement was placed on the backside of the tibial component and along the keel. The tibial component was placed by hand into the keel and was then impacted and extruded cement removed. Cement was applied to exposed bone of the femur, as well as the posterior condylar portion prostheses, and the femoral component was inserted, extruded cement was then removed. The knee was brought to full extension. Cement was applied to the patella, as well as the patellar button, which was clamped into position. Extruded cement was removed. After the cement completely dried, the knee was flexed, the trial polyethylene was removed. Scored cement was removed. A tourniquet was deflated. Hemostasis was obtained. Pulse lavage was used to irrigate and remove any loose debris from posterior knee. A formal size 2.5, 10 mm polyethylene was inserted, confirmed seated and locked. The knee was reduced, hemostasis obtained. It was noted at this time that the knee was unstable and no significant recurvatum. The flexion extension gaps were equal but secondary to soft tissue attenuation. A 10 mm poly was too thin. The 10 mm poly-was explanted. A 12.5 mm trial was placed. The knee was stable in extension and flexion. The knee had range of motion 0-130. A formal size 2.5, 10 mm polyethylene was inserted, confirmed seated and locked. The knee remained stable with full range of motion. Copious amounts of irrigation was used with pulse lavage to remove and loose debris. The arthrotomy was closed with 1 PDS in a [id number], interrupted fashion, subcutaneous tissues irrigated, closed with 2-0 Vicryl in an inverted, interrupted fashion. The skin was closed with ilan. A sterile dressing was applied. Sponge, needle and instrument counts were correct at the end of the case. DISPOSITION: Patient transferred to PACU in stable condition. The patient will be weight bearing as tolerated on the operative extremity. PT will begin POD #0 if available. Postoperative AP and lateral of the operative knee will be ordered in PACU. Bilateral knee high SCDs will be worn while admitted. ASA 81mg BID will be given for DVT prophylaxis for 6 weeks. Pain will be controlled with medication. The patient will follow up in clinic in approximately 2 weeks. ESTIMATED BLOOD LOSS: <50 mL. CULTURES: None. PATHOLOGY: Bone. Synovial tissue IMPLANTS: Depuy Sigma Femur: size 2.5 PS Tibia: Size 2.5 Poly insert: size 2.5 PS, 12.5 mm thickness Patella: 32 mm MYNOR LORD MD Dec 24, 2018 16:52
[2018-12-24] MEDS: CEFAZOLIN 2 GM/50 ML (PMX) 50 ML IVPB SCH (17:22)
[2018-12-24] MEDS: ACETAMINOPHEN 1000MG/100ML IV 100 ML IVPB SCH (17:23)
[2018-12-24] MEDS: LACTATED RINGER'S 1,000 ML IV SCH (18:48)
[2018-12-24] MEDS: oxyCODONE 5 MG TAB PO PRN (20:32)
[2018-12-24] MEDS: GABAPENTIN 300 MG CAP PO SCH (20:35)
[2018-12-24] MEDS ORDERED: GABAPENTIN 300 MG CAP PO SCH (21:00)
[2018-12-25] VITALS: BP 106/59; PULSE 87; RESP 18
[2018-12-25] MEDS: CEFAZOLIN 2 GM/50 ML (PMX) 50 ML IVPB SCH ×2 (02:00→10:49)
[2018-12-25] MEDS: ACETAMINOPHEN 1000MG/100ML IV 100 ML IVPB SCH ×2 (02:04→10:49)
[2018-12-25] MEDS: oxyCODONE 5 MG TAB PO PRN ×2 (03:10→09:20)
[2018-12-25] MEDS: BETHANECHOL 25 MG TAB PO PRN ×2 (06:34→13:40)
[2018-12-25] MEDS: LACTATED RINGER'S 1,000 ML IV SCH ×2 (07:00→19:30)
[2018-12-25] MEDS ORDERED: DEXAMETHASONE 10 MG/ML 1 ML INJ IV ONE (07:00)
[2018-12-25 08:38] VITALS: BP 107/57; PULSE 88; RESP 18
[2018-12-25] MEDS: HYDROCHLOROTHIAZIDE 25 MG TAB PO SCH (09:00)
[2018-12-25] MEDS: AMLODIPINE 5 MG TAB PO SCH (09:00)
[2018-12-25] MEDS: LOSARTAN 50 MG TAB PO SCH (09:00)
[2018-12-25] MEDS: DOCUSATE SODIUM 100 MG CAP PO SCH ×2 (09:22→21:52)
[2018-12-25] MEDS: ASPIRIN (EC) 81 MG TAB PO SCH ×2 (09:24→21:51)
--- NOTE | 2018-12-25 13:10 | PN ---
Date/Time of Note Date/Time of Note DATE: 12/25/18 TIME: 13:09 Assessment/Plan Lines/Catheters IV Catheter Type (from Nrsg): Peripheral IV Sweeney in Place (from Nrsg): Yes Assessment/Plan Chief Complaint/Hosp Course POD#1 s/p primary right TKA -Post op H&H stable -PT/OT -Joints pain control protocol -DVT prophylaxis: SCD's, ASA 81 mg twice daily -Weight bearing status: as tolerated -Post-op XR ordered -Abx: 24h vanc/ancef -Diet: ADAT -Sweeeny: Discontinued -Discharge planning consult Planned Discharge Date: today versus tomorrow 12/26/2018 Discharge to SNF versus acute rehab unit Subjective 24 Hr Interval Summary Patient doing well No acute events overnight Pain is well controlled Exam/Review of Systems Vital Signs Vitals Vital Signs Date Temp Pulse Resp B/P (MAP) Pulse Ox O2 O2 Flow FiO2 Time Delivery Rate 12/25/18 98.3 88 18 107/57 99 Room Air 08:38 (74) 12/24/18 2.0 21:00 Intake and Output 12/24/18 12/24/18 12/25/18 1414:59 22:59 06:59 IntakeIntake Total 260 ml 1100 ml OutputOutput Total 810 ml BalanceBalance -550 ml 1100 ml Exam Free Text/Dictation Right lower extremity: Dressing: clean, dry, and intact, no erythema Sensation intact to light touch in a sural, saphenous, deep peroneal, superficial peroneal, medial and lateral plantar nerve distribution. Motor is intact, patient able to dorsiflex and plantarflex ankle and extend and flex great toe. Dorsalis Pedis pulse +2, Brisk capillary refill. Compartments are soft. Calves non-tender to palpation bilaterally. Results Result Diagram: 12/25/18 0426 12/25/18 0426 MYNOR LORD MD Dec 25, 2018 13:10
[2018-12-25] MEDS: SENNA/DOCUSATE NA (8.6MG/50MG) TAB PO PRN (13:40)
[2018-12-25 13:52] VITALS: BP 106/56; PULSE 71; RESP 18
--- NOTE | 2018-12-25 14:03 | PN ---
Date/Time of Note Date/Time of Note DATE: 12/25/18 TIME: 14:00 Assessment/Plan VTE Prophylaxis Risk score (from Ns)>0 risk: 9 SCD applied (from Ns): Yes Pharmacological prophylaxis: other (aspirin) Lines/Catheters IV Catheter Type (from [facility] Peripheral IV Urinary Cath still in place: Yes Reason Cath still needed: other (indicate) Assessment/Plan Assessment/Plan 1. s/p right total knee replacement, 12/24/2018, stable, follow up with ortho and PT 2. Hypertension, controlled 3. DVT prophylaxis: SCDs and aspirin Result Diagram: 12/25/1842512/25/18425 Results 24hrs Laboratory Tests Test 12/25/18 04:26 12/25/18 06:30 12/25/18 07:23 White Blood Count 16.7 H Red Blood Count 3.73 L Hemoglobin 11.4 L Hematocrit 34.1 L Mean Corpuscular Volume 91.4 Mean Corpuscular Hemoglobin 30.6 Mean Corpuscular 33.4 Hemoglobin Concent Red Cell Distribution Width 13.2 Platelet Count 308 Mean Platelet Volume 9.7 Immature Granulocytes % 0.600 H Neutrophils % 87.2 H Lymphocytes % 6.2 L Monocytes % 5.9 Eosinophils % 0.0 Basophils % 0.1 Nucleated Red Blood Cells % 0.0 Immature Granulocytes # 0.100 H Neutrophils # 14.6 H Lymphocytes # 1.0 Monocytes # 1.0 H Eosinophils # 0.0 Basophils # 0.0 Nucleated Red Blood Cells # 0.0 Sodium Level 139 Potassium Level 4.2 Chloride Level 98 Carbon Dioxide Level 26 Anion Gap 15 H Blood Urea Nitrogen 19 Creatinine 0.68 Est Glomerular Filtrat Rate mL/min Glucose Level 121 Calcium Level 9.5 Urine Color YELLOW Urine Clarity CLEAR Urine pH 5.0 Urine Specific [place] 1.032 H Urine Ketones NEGATIVE Urine Nitrite NEGATIVE Urine Bilirubin NEGATIVE Urine Urobilinogen NEGATIVE Urine Leukocyte Esterase NEGATIVE Urine Hemoglobin NEGATIVE Urine Glucose NEGATIVE Urine Total Protein NEGATIVE Lab Scanned Report REFERENCE LAB Exam/Review of Systems Exam Vitals Vital Signs Date Temp Pulse Resp B/P (MAP) Pulse Ox O2 O2 Flow FiO2 Time Delivery Rate 12/25/18 98.3 71 18 106/56 96 Room Air 13:52 (73) 12/24/18 2.0 21:00 Intake and Output 12/24/18 12/24/18 12/25/18 1515:00 23:00 07:00 IntakeIntake Total 260 ml 1100 ml OutputOutput Total 810 ml BalanceBalance -550 ml 1100 ml Constitutional: alert, oriented, well developed Psych: no complaints, nl mood/affect Head: normocephalic, atraumatic Eyes: nl conjunctiva, EOMI, nl lids, PERRL ENMT: nl external ears & nose, nl lips & teeth, nl nasal mucosa & septum Neck: supple, non-tender Respiratory: clear to auscultation, normal air movement; No congested cough, No crackles/rales, No diminished breath sounds, No intercostal retraction, No labored breathing, No respirations, No tactile fremitus, No wheezing, No other Cardiovascular: regular rate and rhythm, nl pulses; No bruits, No diastolic murmur, No edema, No gallop, No irregular rhythm, No jugular venous distention (JVD), No murmurs/extra sounds, No rub, No systolic murmur, No S3, No S4, No other Gastrointestinal: soft, nl liver, spleen, non-tender Extremities: other (right knee pain) Neurological: MACHINE STEMMER II-XII intact, nl mental status, nl speech, nl strength Results Results 24hrs Laboratory Tests Test 12/25/18 04:26 12/25/18 06:30 12/25/18 07:23 White Blood Count 16.7 H Red Blood Count 3.73 L Hemoglobin 11.4 L Hematocrit 34.1 L Mean Corpuscular Volume 91.4 Mean Corpuscular Hemoglobin 30.6 Mean Corpuscular 33.4 Hemoglobin Concent Red Cell Distribution Width 13.2 Platelet Count 308 Mean Platelet Volume 9.7 Immature Granulocytes % 0.600 H Neutrophils % 87.2 H Lymphocytes % 6.2 L Monocytes % 5.9 Eosinophils % 0.0 Basophils % 0.1 Nucleated Red Blood Cells % 0.0 Immature Granulocytes # 0.100 H Neutrophils # 14.6 H Lymphocytes # 1.0 Monocytes # 1.0 H Eosinophils # 0.0 Basophils # 0.0 Nucleated Red Blood Cells # 0.0 Sodium Level 139 Potassium Level 4.2 Chloride Level 98 Carbon Dioxide Level 26 Anion Gap 15 H Blood Urea Nitrogen 19 Creatinine 0.68 Est Glomerular Filtrat Rate mL/min Glucose Level 121 Calcium Level 9.5 Urine Color YELLOW Urine Clarity CLEAR Urine pH 5.0 Urine Specific [place] 1.032 H Urine Ketones NEGATIVE Urine Nitrite NEGATIVE Urine Bilirubin NEGATIVE Urine Urobilinogen NEGATIVE Urine Leukocyte Esterase NEGATIVE Urine Hemoglobin NEGATIVE Urine Glucose NEGATIVE Urine Total Protein NEGATIVE Lab Scanned Report REFERENCE LAB Medications Medication Current Medications Lactated Ringer's 1,000 ml @ 80 mls/hr [id number] IV Last administered on 12/24/18at 18:48; Admin Dose 80 MLS/HR; Start 12/24/18 at 18:30 IV Flush (NS 3 ml) 3 ml PER PROTOCOL IV ; Start 12/24/18 at 16:30 Oxycodone HCl (Roxicodone) 15 mg Q4H PRN PO .PAIN Last administered on 12/25/18at 09:20; Admin Dose 15 MG; Start 12/24/18 at 16:30 Oxycodone HCl (Roxicodone) 10 mg Q4H PRN PO .PAIN; Start 12/24/18 at 16:30 Oxycodone HCl (Roxicodone) 5 mg Q4H PRN PO .PAIN; Start 12/24/18 at 16:30 Hydromorphone HCl (Dilaudid) 1 mg Q3H PRN IV .BREAKTHROUGH PAIN; Start 12/24/18 at 16:30 Acetaminophen (Tylenol Tab) 1,000 mg Q8 PO ; Start 12/25/18 at 22:00 Ondansetron HCl (Zofran Inj) 4 mg Q4H PRN IV NAUSEA/VOMITING; Start 12/25/18 at 16:30 Gabapentin (Neurontin) 300 mg QHS PO Last administered on 12/24/18at 20:35; Admin Dose 300 MG; Start 12/24/18 at 21:00 Pantoprazole (Protonix Tab) 40 mg DAILY@06 PO ; Start 12/26/18 at 06:00 Docusate Sodium (Colace) 200 mg BID PO Last administered on 12/25/18at 09:22; Admin Dose 200 MG; Start 12/25/18 at 09:00; Stop 12/28/18 at 08:59 Simethicone (Mylicon) 80 mg TID PRN PO .GAS; Start 12/24/18 at 16:30 Senna/Docusate Sodium (Senokot-S) 2 tab BID PRN PO .CONSTIPATION Last administered on 12/25/18at 13:40; Admin Dose 2 TAB; Start 12/24/18 at 16:30 Magnesium Hydroxide (Milk Of Mag) 30 ml HS PRN PO .CONSTIPATION; Start 12/24/18 at 16:30 Bisacodyl (Dulcolax Supp) 10 mg DAILY PRN [place] .CONSTIPATION; Start 12/24/18 at 16:30 Sodium Biphosphate/ Sodium Phosphate (Fleet Enema) 133 ml DAILY PRN [place] .CONSTIPATION; Start 12/24/18 at 16:30 Diphenhydramine HCl (Benadryl) 25 mg Q4H PRN IV .ITCHING; Start 12/24/18 at 16:30 Naloxone HCl (Narcan) 0.2 mg Q2M PRN IV .RESP RATE; Start 12/24/18 at 16:30 Bethanechol Chloride (Urecholine) 25 mg URINARY CATH D/C PRN PO UNABLE TO VOID Last administered on 12/25/18at 13:40; Admin Dose 25 MG; Start 12/24/18 at 16:30 Aspirin (Halfprin) 81 mg BID PO Last administered on 12/25/18at 09:24; Admin Dose 81 MG; Start 12/25/18 at 09:00 Amlodipine Besylate (Norvasc) 5 mg DAILY PO ; Start 12/25/18 at 09:00 Hydrochlorothiazide (Hydrochlorothiazide) 25 mg DAILY PO ; Start 12/25/18 at 09:00 Losartan Potassium (Cozaar) 50 mg DAILY PO ; Start 12/25/18 at 09:00 ROSCOE YANES MD Dec 25, 2018 14:03
[2018-12-25] MEDS ORDERED: ONDANSETRON 4 MG INJ IV PRN (16:30)
[2018-12-25 19:50] VITALS: BP 116/56; PULSE 81; RESP 20
[2018-12-25] MEDS: GABAPENTIN 300 MG CAP PO SCH (21:51)
[2018-12-25] MEDS: ACETAMINOPHEN 500 MG TAB PO SCH (21:51)
[2018-12-26] MEDS: oxyCODONE 5 MG TAB PO PRN ×2 (02:07→16:44)
[2018-12-26 02:10] VITALS: BP 128/69; PULSE 81; RESP 20
[2018-12-26] MEDS ORDERED: PANTOPRAZOLE (EC) 40 MG TAB PO SCH (06:00)
[2018-12-26] MEDS: ACETAMINOPHEN 500 MG TAB PO SCH ×2 (06:37→14:54)
[2018-12-26 07:47] VITALS: BP 107/55; PULSE 62; RESP 18
[2018-12-26] MEDS: LACTATED RINGER'S 1,000 ML IV SCH (08:00)
[2018-12-26] MEDS: AMLODIPINE 5 MG TAB PO SCH (09:00)
[2018-12-26] MEDS: HYDROCHLOROTHIAZIDE 25 MG TAB PO SCH (09:00)
[2018-12-26] MEDS: LOSARTAN 50 MG TAB PO SCH (09:00)
[2018-12-26] MEDS: ASPIRIN (EC) 81 MG TAB PO SCH (09:03)
[2018-12-26] MEDS: SENNA/DOCUSATE NA (8.6MG/50MG) TAB PO PRN (09:04)
[2018-12-26] MEDS: DOCUSATE SODIUM 100 MG CAP PO SCH (09:04)
[2018-12-26] MEDS ORDERED: ASPI-1044 PO (15:16)
[2018-12-26] MEDS ORDERED: PANT40TA4 PO (15:16)
[2018-12-26] MEDS ORDERED: OXYC-481 PO (15:16)
--- NOTE | 2018-12-26 15:20 | DS ---
Date/Time of Note Date/Time of Note DATE: 12/26/18 TIME: 15:17 Discharge Summary Admission/Discharge Info Admit Date/Time Dec 24, 2018 at 06:36 Discharge Date/Time Discharge Diagnosis 1. s/p right total knee replacement, 12/24/2018, stable, follow up with ortho and PT 2. Hypertension, controlled 3. DVT prophylaxis: SCDs and aspirin Patient Condition: Stable Hospital Course 78 years old woman admitted for elective right total knee arthroplasty on 12/24/2018 without complications. Pain is well controlled, patient tolerates diet and physical therapy. Patient will be transferred to SNF for further physical therapy. SHe will follow up with ortho outpatient. Home Meds Active Scripts Aspirin Delayed Release (Aspirin Delayed Release) 81 Mg Tablet., 81 MG PO BID for 30 Days Prov:ROSCOE YANES MD 12/26/18 Oxycodone Hcl* (IR) (Roxicodone*) 5 Mg Tab, 5 MG PO Q4H PRN for .PAIN for 10 Days, TAB Prov:ROSCOE YANES MD 12/26/18 Pantoprazole* (Pantoprazole*) 40 Mg Tablet., 40 MG PO DAILY@06 for 10 Days Prov:ROSCOE YANES MD 12/26/18 Reported Medications Gabapentin* (Gabapentin*) 300 Mg Capsule, 300 MG PO QHS, #60 CAP 12/24/18 Losartan Potassium* (Losartan Potassium*) 50 Mg Tablet, 50 MG PO DAILY, TAB 12/24/18 Hydrochlorothiazide* (Hydrochlorothiazide*) 25 Mg Tab, 25 MG PO DAILY, #30 TAB 12/24/18 Amlodipine Besylate* (Norvasc*) 5 Mg Tablet, 5 MG PO DAILY, TAB 12/24/18 Discontinued Reported Medications Metoclopramide Hcl (Metoclopramide) 5 Mg/5 Ml Soln, 60 MG PO DAILY 02/11/13 Acetaminophen (Q-Pap Extra Strength) 500 Mg Tablet, 500 MG PO DAILY 02/11/13 Docusate Sodium (Docusate Sodium) 100 Mg Tablet, 100 MG PO DAILY 02/11/13 Omeprazole* (Omeprazole*) 20 Mg Capsule.dr, 20 MG PO DAILY 10/04/12 [Colipax] No Conflict Check, NEEDED 12/13/11 Ranitidine Hcl* (Ranitidine Hcl*) 75 Mg Tablet, 75 MG PO NEEDED 12/13/11 Verapamil Hcl* (Verapamil Hcl*) 240 Mg Tablet.sa, 240 MG PO DAILY 12/13/11 Verapamil Hcl (Calan Sr) 240 Mg Tablet.sa 02/12/11 Discontinued Scripts Naproxen* (Naprosyn*) 500 Mg Tablet, 500 MG PO BID PRN for PAIN AND/OR INFLAMMATION, #30 TAB Prov:YASSINE PETTY PA-C 05/01/17 Acetaminophen* (Tylophen*) 500 Mg Capsule, 1 CAP PO Q6H PRN for PAIN AND OR ELEVATED TEMP, #15 CAP Prov:ABE ROLDAN MD 12/31/16 Follow-up Plan PCP and ortho in one week Primary Care Provider Not On Staff Doctor Pending Labs Laboratory Tests Test 12/26/18 04:43 White Blood Count 13.8 10^3/ul (4.8-10.8) Red Blood Count 3.38 10^6/ul (4.20-5.40) Hemoglobin 10.3 g/dl (12.0-16.0) Hematocrit 30.7 % (37.0-47.0) Mean Corpuscular Volume 90.8 fl (82.0-101.0) Mean Corpuscular Hemoglobin 30.5 pg (29.0-33.0) Mean Corpuscular Hemoglobin Concent 33.6 g/dl (32.0-37.0) Red Cell Distribution Width 13.4 % (11.5-14.5) Platelet Count 256 10^3/UL (140-415) Mean Platelet Volume 9.6 fl (7.4-10.4) Immature Granulocytes % 0.300 % (0.001-0.429) Neutrophils % 79.0 % (39.0-77.0) Lymphocytes % 10.3 % (15.0-51.0) Monocytes % 10.3 % (0.0-11.0) Eosinophils % 0.0 % (0.0-7.0) Basophils % 0.1 % (0.0-2.0) Nucleated Red Blood Cells % 0.0 /100WBC (0.0-0.0) Immature Granulocytes # 0.040 10^3/ul (0.0-0.031) Neutrophils # 10.9 10^3/ul (1.6-7.5) Lymphocytes # 1.4 10^3/ul (0.8-2.9) Monocytes # 1.4 10^3/ul (0.3-0.9) Eosinophils # 0.0 10^3/ul (0.0-0.5) Basophils # 0.0 10^3/ul (0.0-0.1) Nucleated Red Blood Cells # 0.0 10^3/ul (0.0-0.0) Sodium Level 140 mmol/L (135-144) Potassium Level 4.2 mmol/L (3.5-5.1) Chloride Level 105 mmol/L (97-110) Carbon Dioxide Level 28 mmol/L (21-31) Anion Gap 7 (5-13) Blood Urea Nitrogen 21 mg/dl (7-20) Creatinine 0.60 mg/dl (0.44-1.00) Est Glomerular Filtrat Rate mL/min mL/min (>60) Glucose Level 112 mg/dl (70-220) Calcium Level 9.4 mg/dl (8.4-10.2) ROSCOE YANES MD Dec 26, 2018 15:20
[2018-12-26 16:49] VITALS: BP 125/58; PULSE 80; RESP 18
== END 2018-12-26 18:58 | DRG 470 ==
LOC: REC 06:36 → MS1 18:25
PROVIDERS: ADMIT Orthopaedic Surgery Adult Reconstructive Orthopaedic Surgery; ATTEND Orthopaedic Surgery Adult Reconstructive Orthopaedic Surgery
PROC: XR2G021 Monitoring of Right Knee Joint using Intraoperative Knee Replacement Sensor, Open Approach, New Technology Group 1 (ICD-10-PCS; 2018-12-24)
PROC: 0SRC0J9 Replacement of Right Knee Joint with Synthetic Substitute, Cemented, Open Approach (ICD-10-PCS; principal; 2018-12-24 13:00)
DX: M17.11 Unilateral primary osteoarthritis, right knee (principal); I10 Essential (primary) hypertension; K21.9 Gastro-esophageal reflux disease without esophagitis; M81.0 Age-related osteoporosis without current pathological fracture; Z79.82 Long term (current) use of aspirin
CPT/HCPCS: 73560; 80048; 81003; 85025; 87081; 87086; 88304; 88311; 97116; 97162; 97165; 97530; 97535; C1713; J0131; J0171; J0690; J0735; J1100; J1170; J1885; J2250; J2405; J2795; J7120

== ENCOUNTER → 2019-01-09 | Outpatient (CLI) | payer OTHER ==
[~2019-01-09] MED LIST changes: -ACET500C5 PO; -ACET500T84 PO; +AMLO5TAB4 PO; +ASPI-1044 PO; -DOCU100T7 PO; +GABA300C16 PO; +HYDR25TA6 PO; +LOSA50TA14 PO; -NAPR-985 PO; -OMEP20CA16 PO; +OXYC-481 PO; +PANT40TA4 PO; -RANI-513 PO; -REG5/5 PO; -VERA240T94 PO; -[UNRECOGNIZED DRUG - CODE]; -[UNRECOGNIZED DRUG - OTHER]
--- NOTE | 2019-01-09 13:27 | CONS ---
Consult Date/Type/Reason Admit Date/Time Initial Consult Date Date/Time of Note DATE: 01/09/19 TIME: 13:22 Subjective DOS: 12/24/2018 Procedure: Right primary TKA 2 weeks weeks s/p right primary TKA who returns today for follow up. The patient is doing well overall. She is still at an SNF. Pain is minimal. Denies F/C. Denies N/T. Denies any drainage from the incision. Narcotic Pain medication: Yes Gait Aids: Walker Pain better than before surgery: Yes Pleased with outcome. Objective Vitals Weight: 165 pounds Height: 5 foot Temperature: 90 point Heart Rate: 89 Blood Pressure: 137/68 Respiratory Rate: 12 Exam General: Alert, oriented x3. No Acute Distress. Heart: Regular rate and rhythm. Lungs: No respiratory distress. No accessory muscle use. Right lower Extremity: Incision clean, dry, intact. No skin breakdown, no surrounding erythema. Sensation intact to light touch in a sural, saphenous, deep peroneal, superficial peroneal, medial and lateral plantar nerve distribution. Motor is intact, patient able to dorsiflex and plantarflex ankle and extend and flex great toe. Dorsalis Pedis pulse +2, Brisk capillary refill. Compartments are soft. ROM: Extension: 0 Flexion: 60 Varus/ Valgus Stability: Stable in extension, flexion, and throughout range of motion A/P Stability: Stable Gait: Slow pace. antalgic. Walker for gait aid. Results/Medications Home Meds Active Scripts Aspirin Delayed Release (Aspirin Delayed Release) 81 Mg Tablet., 81 MG PO BID for 30 Days Prov:ROSCOE YANES MD 12/26/18 Oxycodone Hcl* (IR) (Roxicodone*) 5 Mg Tab, 5 MG PO Q4H PRN for .PAIN for 10 Days, TAB Prov:ROSCOE YANES MD 12/26/18 Pantoprazole* (Pantoprazole*) 40 Mg Tablet., 40 MG PO DAILY@06 for 10 Days Prov:ROSCOE YANES MD 12/26/18 Reported Medications Gabapentin* (Gabapentin*) 300 Mg Capsule, 300 MG PO QHS, #60 CAP 12/24/18 Losartan Potassium* (Losartan Potassium*) 50 Mg Tablet, 50 MG PO DAILY, TAB 12/24/18 Hydrochlorothiazide* (Hydrochlorothiazide*) 25 Mg Tab, 25 MG PO DAILY, #30 TAB 12/24/18 Amlodipine Besylate* (Norvasc*) 5 Mg Tablet, 5 MG PO DAILY, TAB 12/24/18 Imaging Xrays obtained from outside facility and personally reviewed by myself: AP and lateral of the right knee demonstrates right knee s/p TKA. Components in good position and alignment. No signs of wear, osteolysis, loosening, component failure, or fracture. No acute complications. Assessment/Plan Hospital Course (Demo Recall) 78-year-old female doing well 2 weeks s/p right TKA. She has full extension however her flexion is significantly decreased. Intraoperatively full deep flexion was obtainable. The patient has noted she has been apprehensive to bend the knee. I encouraged her to continue working on range of motion exercises and demonstrated those exercises in clinic for her. If she does not get to 90 degr ees by 6 weeks post op we will discuss manipulation under anesthesia. In addition she does have a massive traumatic rotator cuff tear on the right side she will need to get authorization and referral for pain orthopedics or sports surgeon for further evaluation and treatment of this. -Continue work on range of motion - DVT Prophylaxis: ASA 81 mg twice daily x4 more weeks - FU 4 weeks for repeat clinical and radiographic exam - Antibiotic dental prophylaxis for any cleaning or procedure MYNOR LORD MD Jan 09, 2019 13:27
== END | disposition home or self-care (01) ==
LOC: HKI 11:21
PROVIDERS: ATTEND Orthopaedic Surgery Adult Reconstructive Orthopaedic Surgery
DX: Z47.1 Aftercare following joint replacement surgery (principal); Z96.651 Presence of right artificial knee joint

== ENCOUNTER 2019-02-05 17:06 | Inpatient (IN) | payer OTHER ==
[~2019-02-05] VITALS: Ht 152.4 cm; Wt 74.4 kg
[2019-02-05] MEDS ORDERED: LACTATED RINGER'S 1,000 ML IV STA (18:21)
[2019-02-05] MEDS ORDERED: HYDROmorphONE 2 MG/ML SYG IV STA (18:34)
[2019-02-05] MEDS ORDERED: ONDANSETRON 4 MG INJ IV STA (18:57)
[2019-02-05] MEDS ORDERED: IBUPROFEN 200 MG TAB ONE (18:58)
[2019-02-05] MEDS ORDERED: ONDANSETRON 4 MG INJ ONE (18:58)
--- NOTE | 2019-02-05 18:58 | ERD ---
ER Documentation Chief Complaint Chief Complaint AP X 2 DAYS HPI 78-year-old female presenting with epigastric abdominal pain for the past 3 days. She describes it is very strong, severe, nonradiating, constant with no alleviating or exacerbating factors. She has a history of a perforated ulcer with multiple abdominal surgeries. She had a small bowel movement this morning without blood or melena. She denies any associated nausea, vomiting, fever or chills. No coughing or shortness of breath. Denies any dysuria. Her pain is currently a 10 out of 10. She states that it feels like her ulcer pain. She has been taking oxycodone for her right knee pain and more recently Advil starting yesterday. However she was having her abdominal pain before starting the Advil. She states that her stomach is very sensitive and she feels that the oxycodone is causing her pain. ROS All systems reviewed and are negative except as per history of present illness. Medications Home Meds Active Scripts Aspirin Delayed Release (Aspirin Delayed Release) 81 Mg Tablet., 81 MG PO BID for 30 Days Prov:ROSCOE YANES MD 12/26/18 Oxycodone Hcl* (IR) (Roxicodone*) 5 Mg Tab, 5 MG PO Q4H PRN for .PAIN for 10 Days, TAB Prov:ROSOCE YANES MD 12/26/18 Pantoprazole* (Pantoprazole*) 40 Mg Tablet.dr, 40 MG PO DAILY@06 for 10 Days Prov:ROSCOE YANES MD 12/26/18 Reported Medications Gabapentin* (Gabapentin*) 300 Mg Capsule, 300 MG PO QHS, #60 CAP 12/24/18 Losartan Potassium* (Losartan Potassium*) 50 Mg Tablet, 50 MG PO DAILY, TAB 12/24/18 Hydrochlorothiazide* (Hydrochlorothiazide*) 25 Mg Tab, 25 MG PO DAILY, #30 TAB 12/24/18 Amlodipine Besylate* (Norvasc*) 5 Mg Tablet, 5 MG PO DAILY, TAB 12/24/18 Allergies Allergies: Coded Allergies: morphine (Verified Allergy, Mild, RASH, 12/24/18) PMhx/Soc History of Surgery: Yes (hysterectomy, hernia x2, stomach sx for perforated ulcer, right knee surgery, appendectomy) Anesthesia Reaction: No Hx Neurological Disorder: No Hx Respiratory Disorders: No Hx Cardiac Disorders: Yes (htn) Hx Psychiatric Problems: No Hx Miscellaneous Medical Probl: Yes (OA , HTN , GERD, OSTEOPROSIS , TORN ROTATOR CUFF RT SHOULDER . Peptic ulcer) Hx Alcohol Use: No Hx Substance Use: No Hx Tobacco Use: No FmHx Family History: No diabetes Physical Exam Vitals Vital Signs Date Temp Pulse Resp B/P (MAP) Pulse Ox O2 O2 Flow FiO2 Time Delivery Rate 02/05/19 87 147/80 97 Room Air 18:20 (102) 02/05/19 100.0 115 22 194/84 96 17:48 (120) Physical Exam Const: In distress secondary to pain, nontoxic Head: Atraumatic Eyes: Normal Conjunctiva ENT: Normal External Ears, Nose and Mouth. Neck: Full range of motion. No meningismus. Resp: Clear to auscultation bilaterally Cardio: Tachycardic with regular rhythm, no murmurs. 2+ distal pulses Abd: Midline abdominal surgical scar noted. Soft, distended, tender in the epigastrium with no rebound or guarding. No peritoneal signs. Normal bowel sounds Skin: No petechiae or rashes Back: No midline or flank tenderness Ext: No cyanosis, or edema Neur: Awake and alert Psych: Normal Mood and Affect Result Diagram: 02/05/19190102/05/191901 Results 24 hrs Laboratory Tests Test 02/05/19 18:28 02/05/19 19:02 Urine Color STRAW Urine Clarity CLEAR Urine pH 9.0 Urine Specific [place] 1.009 Urine Ketones NEGATIVE mg/dL Urine Nitrite NEGATIVE mg/dL Urine Bilirubin NEGATIVE mg/dL Urine Urobilinogen NEGATIVE mg/dL Urine Leukocyte Esterase NEGATIVE Anu/ul Urine Hemoglobin NEGATIVE mg/dL Urine Glucose NEGATIVE mg/dL Urine Total Protein NEGATIVE mg/dl White Blood Count 12.5 10^3/ul Red Blood Count 4.86 10^6/ul Hemoglobin 14.1 g/dl Hematocrit 42.5 % Mean Corpuscular Volume 87.4 fl Mean Corpuscular Hemoglobin 29.0 pg Mean Corpuscular Hemoglobin Concent 33.2 g/dl Red Cell Distribution Width 13.2 % Platelet Count 393 10^3/UL Mean Platelet Volume 9.0 fl Immature Granulocytes % 0.300 % Neutrophils % 77.0 % Lymphocytes % 14.4 % Monocytes % 7.1 % Eosinophils % 0.6 % Basophils % 0.6 % Nucleated Red Blood Cells % 0.0 /100WBC Immature Granulocytes # 0.040 10^3/ul Neutrophils # 9.6 10^3/ul Lymphocytes # 1.8 10^3/ul Monocytes # 0.9 10^3/ul Eosinophils # 0.1 10^3/ul Basophils # 0.1 10^3/ul Nucleated Red Blood Cells # 0.0 10^3/ul Sodium Level 135 mmol/L Potassium Level 4.5 mmol/L Chloride Level 96 mmol/L Carbon Dioxide Level 26 mmol/L Anion Gap 13 Blood Urea Nitrogen 5 mg/dl Creatinine 0.44 mg/dl Est Glomerular Filtrat Rate mL/min mL/min Glucose Level 129 mg/dl Lactic Acid Level 2.4 mmol/L Calcium Level 10.2 mg/dl Total Bilirubin 0.2 mg/dl Direct Bilirubin 0.00 mg/dl Indirect Bilirubin 0.2 mg/dl Aspartate Amino Transf (AST/SGOT) 22 IU/L Alanine Aminotransferase (ALT/SGPT) 24 IU/L Alkaline Phosphatase 99 IU/L Total Protein 7.8 g/dl Albumin 4.5 g/dl Globulin 3.30 g/dl Albumin/Globulin Ratio 1.36 Lipase 54 U/L Current Medications Medications Dose Sig/Soham Start Time Status Last (Trade) Ordered Route PRN Stop Time Admin Dose Reason Admin Lactated 1,000 ml @ Q1H STAT 02/05/19 DC 02/05/19 Ringer's 1,000 mls/hr IV 18:21 02/05/19 18:48 19:20 0.5 mg ONCE STAT 02/05/19 DC 02/05/19 Hydromorphone IV 18:34 02/05/19 18:48 HCl 18:36 (Dilaudid) Ondansetron 4 mg ONCE STAT 02/05/19 DC 02/05/19 HCl (Zofran IV 18:57 02/05/19 19:08 Inj) 18:58 Ondansetron 4 mg STK-MED 02/05/19 DC HCl (Zofran ONCE .ROUTE 18:58 02/05/19 Inj) 18:59 Ibuprofen 200 mg STK-MED 02/05/19 DC (Motrin) ONCE .ROUTE 18:58 02/05/19 18:59 Sodium 1,320 ml BOLUS OVER 2 02/05/19 DC 02/05/19 Chloride HOURS STAT 19:28 02/05/19 19:50 (NS) IV* 19:29 Piperacillin 100 ml @ ONCE STAT 02/05/19 DC 02/05/19 Sod/ 200 mls/hr IVPB 19:28 02/05/19 19:43 Tazobactam 19:57 Sod Ondansetron 4 mg BRIDGE ORDER 02/05/19 HCl (Zofran PRN IV 20:30 02/06/19 Inj) NAUSEA/VOMITI 20:29 NG 650 mg ER BRIDGE 02/05/19 Acetaminophen PRN PO 20:30 02/06/19 (Tylenol .MILD PAIN 20:29 Tab) 1-3 OR TEMP Procedures/MDM EMERGENT LABS AND DIAGNOSTIC STUDIES: Lab Results above were reviewed and interpreted by me. CBC: Mild leukocytosis, possibly due to infection CMP: No evidence of electrolyte abnormality, renal failure, hypoglycemia, liver failure, or biliary obstruction Lipase: no evidence of pancreatitis Lactate elevated at 2.4, concerning for sepsis or tissue hypoperfusion UA: no evidence of infection 12-lead EKG was interpreted by Jean-Paul Olmos MD: Normal Sinus Rhythm Normal axis Normal intervals No acute ST or T wave changes suggestive of acute ischemia or STEMI. Radiology Results as interpreted by Radiology below were reviewed by Radha Olmos MD: CT abdomen/pelvis: Evidence of small bowel obstruction, likely partial CXR: IMPRESSION: 1. Low lung volumes with compressive changes and basilar atelectasis. 2. Otherwise, unremarkable chest x-ray. No acute infiltrate is seen. 3. Scattered benign chronic age-related senescent changes. Initial Nursing notes reviewed. Previous Medical Records requested via the Electronic Health Record. EMERGENCY DEPARTMENT COURSE / MEDICAL DECISION MAKING: Patient is presenting with severe upper abdominal pain, mostly in the epigastrium for the past 3 days. Vitals were notable for a low-grade fever, tachycardia, and tachypnea. I suspect most of the vital sign abnormalities are secondary to her pain. She was treated with IV analgesics with improvement of her symptoms. Differential includes but is not limited to biliary colic, biliary obstruction, acute cholecystitis, pancreatitis, hepatitis, lower lobe pneumonia, gastritis, colitis, cardiac pathology, aortic dissection, ischemic bowel, ureterolithiasis, pyelonephritis. Labs were ordered to evaluate for above and were only notable for mild leukocytosis. Chest Xray ordered to evaluate for pneumonia and showed no acute abnormalities. CT of the abdomen/pelvis was ordered and i shows evidence of bowel obstruction. NG tube ordered. Spoke with Dr. Rosario, who will be admitting the patient to [facility]. Dr. Castro with surgery consulted as well. Departure Diagnosis: Primary Impression: Small bowel obstruction Condition: Serious JELENA OLMOS MD Feb 05, 2019 18:58
[2019-02-05] MEDS ORDERED: SODIUM CHLORIDE 0.9% 1L BAG IV* STA (19:28)
[2019-02-05] MEDS ORDERED: PIPER-TAZO 3.375 GM IV (PMX) 100 ML IVPB STA (19:28)
[2019-02-05] MEDS ORDERED: HYDROmorphONE 0.5 MG/0.5 ML SYG IV STA (20:28)
[2019-02-05] MEDS ORDERED: ONDANSETRON 4 MG INJ IV PRN ×2 (20:30→22:00)
[2019-02-05] MEDS ORDERED: ACETAMINOPHEN 325 MG TAB PO PRN ×2 (20:30→22:00)
[2019-02-05] MEDS ORDERED: IBUP-1982 PO (21:04)
[2019-02-05] MEDS ORDERED: OMEP20CA16 PO (21:04)
[2019-02-05] MEDS ORDERED: ELEC100080 PO (21:10)
[2019-02-05] MEDS ORDERED: OMEG1CAP2 PO (21:10)
[2019-02-05] MEDS ORDERED: UDMYL PO (21:10)
[2019-02-05 21:45] VITALS: BP 140/77; PULSE 92; RESP 18
[2019-02-05] MEDS ORDERED: morphine 2 MG INJ IV PRN (22:00)
[2019-02-05] MEDS ORDERED: DOCUSATE SODIUM 100 MG CAP PO PRN (22:00)
[2019-02-05] MEDS ORDERED: NACL 0.9% 3 ML SYG IV SCH (22:00)
[2019-02-05] MEDS ORDERED: BISACODYL (EC) 5 MG TAB PO PRN (22:00)
[2019-02-05] MEDS ORDERED: ENALAPRILAT 2.5 MG INJ IV PRN (22:00)
[2019-02-05] MEDS ORDERED: hydrALAzine 20 MG INJ IV PRN (22:00)
--- NOTE | 2019-02-05 22:40 | HP ---
Date/Time of Note Date/Time of Note DATE: 02/05/19 TIME: 22:40 Assessment/Plan VTE Prophylaxis SCD applied (from Nsg): Yes Pharmacological prophylaxis: NA/contraindicated Pharm contraindication: low risk/ambulating Lines/Catheters IV Catheter Type (from Nrsg): Saline Lock Assessment/Plan Hospital Course This is a 78-year-old female being admitted to the [facility] floor for: #1 recurrent small bowel obstruction: Likely secondary to multiple previous abdominal surgeries. CT abdomen pelvis shows: development of a small bowel obstruction pattern, either a high-grade partial distal small bowel obstruction distal small bowel obstruction without a discernible transition point. At the current time we will keep the patient n.p.o. except meds, IV fluid hydration with normal saline. NG tube to low wall suction. General surgery Dr. Castro has been consulted by the ED #2 lactic acidosis: Lactic acid noted of 2.4. Patient did present with a low- grade fever and tachycardia and tachypnea. Patient was given Zosyn in the ED. Cultures have been ordered. No overt signs of infection at the current time. We will continue IV fluid hydration continue lactic acid levels. I will w ithhold any further antibiotics at the current time. #3 hypertension:Resume home meds, PRN hydralazine #4 GERD: Protonix IV #5 hyperlipidemia: Continue statin, check lipid panel #6 obesity: We will check hemoglobin A1c, lipid panel, TSH #7 DVT GI prophylaxis: SCDs, Protonix Further treatment strategy will be implemented as per the clinical course Result Diagram: 02/05/19190102/05/191901 Results 24hrs Laboratory Tests Test 02/05/19 18:28 02/05/19 19:02 02/05/19 21:51 Urine Color STRAW Urine Clarity CLEAR Urine pH 9.0 Urine Specific [place] 1.009 Urine Ketones NEGATIVE Urine Nitrite NEGATIVE Urine Bilirubin NEGATIVE Urine Urobilinogen NEGATIVE Urine Leukocyte Esterase NEGATIVE Urine Hemoglobin NEGATIVE Urine Glucose NEGATIVE Urine Total Protein NEGATIVE White Blood Count 12.5 H Red Blood Count 4.86 # Hemoglobin 14.1 # Hematocrit 42.5 # Mean Corpuscular Volume 87.4 Mean Corpuscular Hemoglobin 29.0 Mean Corpuscular Hemoglobin Concent 33.2 Red Cell Distribution Width 13.2 Platelet Count 393 # Mean Platelet Volume 9.0 Immature Granulocytes % 0.300 Neutrophils % 77.0 Lymphocytes % 14.4 L Monocytes % 7.1 Eosinophils % 0.6 Basophils % 0.6 Nucleated Red Blood Cells % 0.0 Immature Granulocytes # 0.040 H Neutrophils # 9.6 H Lymphocytes # 1.8 Monocytes # 0.9 Eosinophils # 0.1 Basophils # 0.1 Nucleated Red Blood Cells # 0.0 Sodium Level 135 Potassium Level 4.5 Chloride Level 96 L Carbon Dioxide Level 26 Anion Gap 13 Blood Urea Nitrogen 5 L Creatinine 0.44 Est Glomerular Filtrat Rate mL/min Glucose Level 129 Lactic Acid Level 2.4 *H 1.7 Calcium Level 10.2 Total Bilirubin 0.2 Direct Bilirubin 0.00 Indirect Bilirubin 0.2 Aspartate Amino Transf (AST/SGOT) 22 Alanine Aminotransferase (ALT/SGPT) 24 Alkaline Phosphatase 99 Total Protein 7.8 Albumin 4.5 Globulin 3.30 H Albumin/Globulin Ratio 1.36 Lipase 54 HPI/ROS Admit Date/Time Admit Date/Time Feb 05, 2019 at 20:25 Hx of Present Illness cc: abdominal pain, x 3 days Is a 78-year-old female presenting with epigastric abdominal pain for the past 3 days. She describes it is very strong, severe, nonradiating, constant with no alleviating or exacerbating factors. She has a history of a perforated ulcer with multiple abdominal surgeries. She had a bowel movement this morning without blood or melena. She denies any associated nausea, vomiting, fever or chills. No coughing or shortness of breath. Denies any dysuria. Her pain is currently a 10 out of 10. She states that it feels like her ulcer pain. She has been taking oxycodone for her right knee pain and more recently Advil starting yesterday. However she was having her abdominal pain before starting the Advil. She states that her stomach is very sensitive and she feels that the oxycodone is causing her pain. Patient does report that she has had small bowel obstructions in the past which resolved without surgical intervention. allergies: morphine meds: see jan Const: As per HPI Eyes : No pain discharge or redness or change in visual acuity ENT: No pain, sore throat, congestion, congestion, dysphagia or discharge Respiratory: No shortness of breath, cough, sputum, wheezing, or pleuritic pain Cardiovascular: No chest pain, palpitation, PND, or edema GI : As per HPI Genitourinary: No dysuria, hematuria, flank pain , discharge or CVA tenderness Musculoskeletal: No joint pain, back pain, neck pain, restricted range of motion in neck or joints Skin: No rash, bruising or hives Neuro: No headache, dizziness, syncope, seizure, focal weakness Endocrine: No polyuria, polydipsia, temperature intolerance Psych: No hallucination, depression, anxiety or suicidal ideation PMH/Family/Social Past Medical History HTN GERD HLD Small bowel obstruction Medications Current Medications Ondansetron HCl (Zofran Inj) 4 mg BRIDGE ORDER PRN IV NAUSEA/VOMITING; Start 02/05/19 at 20:30; Stop 02/06/19 at 20:29 Acetaminophen (Tylenol Tab) 650 mg ER BRIDGE PRN PO .MILD PAIN 1-3 OR TEMP; Start 02/05/19 at 20:30; Stop 02/06/19 at 20:29 Sodium Chloride 1,000 ml @ 100 mls/hr Q10H IV ; Start 02/05/19 at 21:45 IV Flush (NS 3 ml) 3 ml PER PROTOCOL IV ; Start 02/05/19 at 22:00 Ondansetron HCl (Zofran Inj) 4 mg Q6H PRN IV NAUSEA/VOMITING; Start 02/05/19 at 22:00 Acetaminophen (Tylenol Tab) 650 mg Q6H PRN PO .PAIN 1-3 OR TEMP; Start 02/05/19 at 22:00 Docusate Sodium (Colace) 100 mg Q12H PRN PO .CONSTIPATION; Start 02/05/19 at 22:00 Bisacodyl (Dulcolax) 5 mg DAILY PRN PO .CONSTIPATION; Start 02/05/19 at 22:00 Enalaprilat (Vasotec Iv) 1.25 mg Q6H PRN IV ELEVATED BLOOD PRESSURE; Start 02/05/19 at 22:00 Hydromorphone HCl (Dilaudid) 0.5 mg Q4H PRN IV SEVERE PAIN LEVEL 7-10; Start 02/05/19 at 23:00 Coded Allergies: morphine (Unverified Allergy, Mild, RASH, 02/05/19) Past Surgical History hysterectomy, hernia x2, stomach, sx for perforated ulcer, right knee surgery, appendectomy. Shoulder sx Family History Significant Family History: no pertinent family hx Social History Alcohol Use: none Smoking Status: Never smoker Drug Use: none Exam/Review of Systems Vital Signs Vitals Vital Signs Date Temp Pulse Resp B/P (MAP) Pulse Ox O2 O2 Flow FiO2 Time Delivery Rate 02/05/19 100 18 145/80 95 Room Air 21:02 (101) 02/05/19 100.0 17:48 Exam Exam General: Patient is a pleasant female currently lying in bed in mild distress from epigastric abdominal pain HEENT: Atraumatic, normocephalic. The pupils are equal, round and reactive. Extraocular motor are intact, NG tube in place connected to wall suction Neck: Supple with full range of motion. No rigidity or meningismus Chest: Nontender Lungs: Clear to auscultation bilaterally no crackles rales or wheezing Heart: Normal S1-S2, Regular rhythm and rate. No murmur, S3, or S4 Abdomen: Soft , tenderness palpation along the epigastric and left mid abdomen, nondistended , bowel sounds are present. , No masses or organomegaly. Extremities: Normal to inspection, no edema no cyanosis, right knee surgical scar Neurologic: Normal mental status, speech normal, cranial nerves II through XII are intact, motor and sensory are intact Additional Comments PROCEDURE: CT abdomen and pelvis without contrast. CLINICAL INDICATION: Abdominal pain. TECHNIQUE: CT scan of the abdomen and pelvis without contrast was performed. Sagittal and coronal reformatted images were obtained from the axial source images. DICOM images are available. One or more of the following dose reduction techniques were used: Automated exposure control, adjustment of the mA and/or kV according to patient size, use of iterative reconstruction technique. CTDI = 14.46 mGy; DLP = 781.05 mGy-cm COMPARISON: CT abdomen 04/10/2017 FINDINGS: Visualized lower thorax: The lung bases are clear. There is no evidence for pleural effusion. Liver, gallbladder, pancreas and spleen: The liver is normal and size, contour and attenuation. There is no evidence for a liver mass or ductal dilatation. The gallbladder is unremarkable. No common bile duct abnormality is demonstrated. The pancreas is unremarkable. The spleen is normal in size. Adrenal glands and genitourinary system: The adrenal glands are normal bilaterally. The previously demonstrated right renal abnormality is no longer evident, a concave defect and punctate calcification in this area suggests either interval ablation or possibly surgical resection. There is a bilobed exophytic right anterior interpolar cyst that is believed to be stable allowing for the technique differences between the 2 exams. There is no evidence of in trarenal calculus or hydronephrosis. The left kidney is unremarkable. The ureters are unremarkable. No urinary bladder abnormality is demonstrated. Hysterectomy changes are noted. There is no evidence of ovarian or adnexal mass. Gastrointestinal system: The stomach is distended without evidence of wall thickening. The small bowel, in particular the jejunum and proximal to middle ileum, is dilated with multiple gas/fluid levels and a diameter measuring up to 4.7 cm small bowel fecal debris. The findings are traceable to the distal ileum and, although there is no discernible transition point, concerning for at least a high grade partial small-bowel obstruction if not complete distal bowel obstruction. There is no evidence of appendicitis. Diffuse diverticulosis of the distal colon is present. There is no evidence for colitis or diverticulitis. A broad-based ventral hernia is seen despite the presence of ventral herniorrhaphy mesh. No mesenteric vascular engorgement or edema of the mesentery is present Peritoneum, retroperitoneum, lymph nodes and vessels: The abdominal aorta is normal in caliber. There is mild aortic and iliac system atherosclerotic calcification. The inferior vena cava is unremarkable. There is no evidence for adenopathy or mass. There is no ascites. No pneumoperitoneum is present Osseous structures and musculoskeletal findings: There is no fracture, lytic or blastic lesion. Degenerative anterolisthesis at L4-5 is present with degenerative disc narrowing and vacuum phenomenon and L5-S1. Multilevel thoracolumbar enthesopathy is seen No muscular abnormality or soft tissue pathology is present. RPTAT:HJJR IMPRESSION: 1. Compared to the prior exam of 04/10/2017, there has been development of a small bowel obstruction pattern, either a high-grade partial distal small bowel obstruction distal small bowel obstruction without a discernible transition point. 2. There is no evidence of pneumoperitoneum, ascites, mesenteric edema or mes enteric vascular engorgement. 3. Herniorrhaphy mesh with a broad-based ventral hernia similar to the prior exam. 4. Diffuse diverticular disease of the colon most pronounced in the distal segments without diverticulitis. 5. Previously seen concerning right posterior interpolar renal lesion is no l onger evident, a concave defect in this location suggest interval treatment, simple appearing right renal cyst is again noted. Preliminary results regarding the small bowel obstruction are discussed by telephone with the patient's emergency room physician Dr. Olmos at 20:25. Michael Pate Physician Date Time Electronically viewed and signed by Michael Pate, Physician on 02/05/2019 20:29 JR/ CC: JELENA OLMOS MD [id number] PROCEDURE: XR Chest. CLINICAL INDICATION: Dyspnea TECHNIQUE: Single frontal chest x-ray. COMPARISON: None available FINDINGS: Diminished lung volumes with compressive changes. Vascular crowding and bilateral basilar atelectasis. Scattered benign chronic changes throughout the lungs. No acute infiltrate is seen, effusion, or pneumothorax. The cardiomediastinal silhouette is normal. Aortic atherosclerotic vascular calcifications. Soft tissues and bony structures are unremarkable. Degenerative enthesopathy of the thoracic spine. IMPRESSION: 1. Low lung volumes with compressive changes and basilar atelectasis. 2. Otherwise, unremarkable chest x-ray. No acute infiltrate is seen. 3. Scattered benign chronic age-related senescent changes. RPTAT: HMJB .Jose Sandhu MD, MD Date Time Electronically viewed and signed by .Jose Sandhu MD, MD on 02/05/2019 19:42 .B/ CC: JELENA OLMOS MD [id number] ASHLEY CAZARES Feb 05, 2019 22:40
[2019-02-05] MEDS ORDERED: HYDROmorphONE 0.5 MG/0.5 ML SYG IV PRN (23:00)
[2019-02-05 23:21] VITALS: Ht 152.4 cm; Wt 74.4 kg
[2019-02-06] MEDS: SOD CHLORIDE 0.9% 1,000 ML IV SCH ×4 (00:15→23:25)
[2019-02-06 02:38] VITALS: BP 146/84; PULSE 90; RESP 18
[2019-02-06] MEDS: HYDROmorphONE 1 MG/ML SYG IV PRN ×2 (03:31→13:57)
[2019-02-06] MEDS ORDERED: KETOROLAC 15 MG INJ IV PRN (04:30)
[2019-02-06] MEDS: PANTOPRAZOLE 40 MG INJ IV SCH (05:36)
[2019-02-06 08:06] VITALS: BP 142/67; PULSE 91; RESP 18
[2019-02-06 14:00] VITALS: BP 145/70; PULSE 78; RESP 18
--- NOTE | 2019-02-06 15:35 | PN ---
Date/Time of Note Date/Time of Note DATE: 02/06/19 TIME: 15:32 Assessment/Plan VTE Prophylaxis Risk score (from Ns)>0 risk: 4 SCD applied (from [facility] [place]): Yes Pharmacological prophylaxis: NA/contraindicated Pharm contraindication: surgical contra Lines/Catheters IV C[facility]ter Type (from [facility]): Peripheral IV Urinary Cath still in place: No Assessment/Plan Hospital Course SUBJECTIVE: Denies any abdominal pain at this time. Had a small bowel movement today. OBJECTIVE: Physical Exam General: Obese, 78 year-old female lying in bed in no apparent distress. HEENT: Normocephalic, atraumatic. Eyes: Anicteric sclerae, conjunctivae clear. ENT: Nasal septum midline, oral mucosa is dry. Neck supple. Respiratory: Bilaterally diminished breath sounds. No use of accessory muscles of respiration. No adventitious breath sounds. Cardiovascular: S1, S2 heard. Regular rate and rhythm. Abdomen: Soft and nondistended. Multiple scars from abdominal surgery. Bowel sounds positive in all 4 quadrants. Genitourinary: Deferred. Extremities: No cyanosis, no clubbing, no edema. Peripheral pulses palpable. Neurologic: Cranial nerves II through XII grossly intact. The patient is awake, alert, and oriented. Skin: Normal skin turgor. No skin rashes. Labs & Vitals per chart ASSESSMENT & PLAN This a 78-year-old female with comorbidities including gastritis, hypertension, hyperlipidemia, and multiple abdominal surgeries. The patient came to the emergency room with chief complaint of abdominal pain. The patient's abdominal imaging showed small bowel obstruction pattern. Therefore, the patient was admitted to inpatient setting for further treatment and evaluation. 1. Abdominal pain in a patient with history of recurrent small bowel obstruction. -CT scan showing evidence of small bowel obstruction. -On NGT decompression. -General surgery has been consulted. 2. Lactic acidosis. -Most probably secondary to #1. 3. Essential hypertension. -Blood pressure stable off antihypertensives. 4. History of dyslipidemia. -Fasting lipid panel satisfactory. 5. Obesity. -BMI of 32 kg/m. 6. Fluids, electrolytes, and nutrition.. -N.p.o. -IV fluids. 7. DVT prophylaxis. -Bilateral SCDs. 8. Plan. -Obtain follow-up of small bowel follow-through. -Continue n.p.o. -Await surgical evaluation. The patient was seen in collaboration with Dr. Wiley. Result Diagram: 02/06/19 0610 02/06/19 0610 Results 24hrs Laboratory Tests Test 02/05/19 18:28 02/05/19 19:02 02/05/19 21:51 02/06/19 00:16 Urine Color STRAW Urine Clarity CLEAR Urine pH 9.0 Urine Specific [place] 1.009 Urine Ketones NEGATIVE Urine Nitrite NEGATIVE Urine Bilirubin NEGATIVE Urine Urobilinogen NEGATIVE Urine Leukocyte Esterase NEGATIVE Urine Hemoglobin NEGATIVE Urine Glucose NEGATIVE Urine Total Protein NEGATIVE White Blood Count 12.5 H Red Blood Count 4.86 # Hemoglobin 14.1 # Hematocrit 42.5 # Mean Corpuscular Volume 87.4 Mean Corpuscular 29.0 Hemoglobin Mean Corpuscular 33.2 Hemoglobin Concent Red Cell Distribution 13.2 Width Platelet Count 393 # Mean Platelet Volume 9.0 Immature Granulocytes % 0.300 Neutrophils % 77.0 Lymphocytes % 14.4 L Monocytes % 7.1 Eosinophils % 0.6 Basophils % 0.6 Nucleated Red Blood 0.0 Cells % Immature Granulocytes # 0.040 H Neutrophils # 9.6 H Lymphocytes # 1.8 Monocytes # 0.9 Eosinophils # 0.1 Basophils # 0.1 Nucleated Red Blood 0.0 Cells # Sodium Level 135 Potassium Level 4.5 Chloride Level 96 L Carbon Dioxide Level 26 Anion Gap 13 Blood Urea Nitrogen 5 L Creatinine 0.44 Est Glomerular Filtrat Rate mL/min Glucose Level 129 Lactic Acid Level 2.4 *H 1.7 1.5 Calcium Level 10.2 Total Bilirubin 0.2 Direct Bilirubin 0.00 Indirect Bilirubin 0.2 Aspartate Amino 22 Transf (AST/SGOT) Alanine 24 Aminotransferase (ALT/SG PT) Alkaline Phosphatase 99 Total Protein 7.8 Albumin 4.5 Globulin 3.30 H Albumin/Globulin Ratio 1.36 Lipase 54 Test 02/06/19 06:10 White Blood Count 10.9 H Red Blood Count 4.01 L Hemoglobin 11.6 L Hematocrit 36.1 L Mean Corpuscular Volume 90.0 Mean Corpuscular 28.9 L Hemoglobin Mean Corpuscular 32.1 Hemoglobin Concent Red Cell Distribution 13.5 Width Platelet Count 344 Mean Platelet Volume 9.5 Immature Granulocytes % 0.500 H Neutrophils % 79.5 H Lymphocytes % 11.0 L Monocytes % 7.6 Eosinophils % 1.0 Basophils % 0.4 Nucleated Red Blood 0.0 Cells % Immature Granulocytes # 0.050 H Neutrophils # 8.7 H Lymphocytes # 1.2 Monocytes # 0.8 Eosinophils # 0.1 Basophils # 0.0 Nucleated Red Blood 0.0 Cells # Sodium Level 137 Potassium Level 4.1 Chloride Level 102 Carbon Dioxide Level 25 Anion Gap 10 Blood Urea Nitrogen 5 L Creatinine 0.46 Est Glomerular Filtrat Rate mL/min Glucose Level 101 Hemoglobin A1c 5.6 Lactic Acid Level 1.5 Calcium Level 9.1 Total Bilirubin 0.2 Direct Bilirubin 0.00 Indirect Bilirubin 0.2 Aspartate Amino 19 Transf (AST/SGOT) Alanine 18 Aminotransferase (ALT/SG PT) Alkaline Phosphatase 76 Total Protein 6.4 # Albumin 3.5 # Globulin 2.90 Albumin/Globulin Ratio 1.20 Triglycerides Level 121 Cholesterol Level 119 LDL Cholesterol, 46 Calculated HDL Cholesterol 49 Cholesterol/HDL Ratio 2.4 Thyroid Stimulating 0.762 Hormone (TSH) Exam/Review of Systems Exam Vitals Vital Signs Date Temp Pulse Resp B/P (MAP) Pulse Ox O2 O2 Flow FiO2 Time Delivery Rate 02/06/19 98.0 78 18 145/70 93 Room Air 14:00 (95) Intake and Output 02/05/19 02/05/19 02/06/19 1515:00 23:00 07:00 IntakeIntake Total 1320 ml BalanceBalance 1320 ml Results Results 24hrs Laboratory Tests Test 02/05/19 18:28 02/05/19 19:02 02/05/19 21:51 02/06/19 00:16 Urine Color STRAW Urine Clarity CLEAR Urine pH 9.0 Urine Specific [place] 1.009 Urine Ketones NEGATIVE Urine Nitrite NEGATIVE Urine Bilirubin NEGATIVE Urine Urobilinogen NEGATIVE Urine Leukocyte Esterase NEGATIVE Urine Hemoglobin NEGATIVE Urine Glucose NEGATIVE Urine Total Protein NEGATIVE White Blood Count 12.5 H Red Blood Count 4.86 # Hemoglobin 14.1 # Hematocrit 42.5 # Mean Corpuscular Volume 87.4 Mean Corpuscular 29.0 Hemoglobin Mean Corpuscular 33.2 Hemoglobin Concent Red Cell Distribution 13.2 Width Platelet Count 393 # Mean Platelet Volume 9.0 Immature Granulocytes % 0.300 Neutrophils % 77.0 Lymphocytes % 14.4 L Monocytes % 7.1 Eosinophils % 0.6 Basophils % 0.6 Nucleated Red Blood 0.0 Cells % Immature Granulocytes # 0.040 H Neutrophils # 9.6 H Lymphocytes # 1.8 Monocytes # 0.9 Eosinophils # 0.1 Basophils # 0.1 Nucleated Red Blood 0.0 Cells # Sodium Level 135 Potassium Level 4.5 Chloride Level 96 L Carbon Dioxide Level 26 Anion Gap 13 Blood Urea Nitrogen 5 L Creatinine 0.44 Est Glomerular Filtrat Rate mL/min Glucose Level 129 Lactic Acid Level 2.4 *H 1.7 1.5 Calcium Level 10.2 Total Bilirubin 0.2 Direct Bilirubin 0.00 Indirect Bilirubin 0.2 Aspartate Amino 22 Transf (AST/SGOT) Alanine 24 Aminotransferase (ALT/SG PT) Alkaline Phosphatase 99 Total Protein 7.8 Albumin 4.5 Globulin 3.30 H Albumin/Globulin Ratio 1.36 Lipase 54 Test 02/06/19 06:10 White Blood Count 10.9 H Red Blood Count 4.01 L Hemoglobin 11.6 L Hematocrit 36.1 L Mean Corpuscular Volume 90.0 Mean Corpuscular 28.9 L Hemoglobin Mean Corpuscular 32.1 Hemoglobin Concent Red Cell Distribution 13.5 Width Platelet Count 344 Mean Platelet Volume 9.5 Immature Granulocytes % 0.500 H Neutrophils % 79.5 H Lymphocytes % 11.0 L Monocytes % 7.6 Eosinophils % 1.0 Basophils % 0.4 Nucleated Red Blood 0.0 Cells % Immature Granulocytes # 0.050 H Neutrophils # 8.7 H Lymphocytes # 1.2 Monocytes # 0.8 Eosinophils # 0.1 Basophils # 0.0 Nucleated Red Blood 0.0 Cells # Sodium Level 137 Potassium Level 4.1 Chloride Level 102 Carbon Dioxide Level 25 Anion Gap 10 Blood Urea Nitrogen 5 L Creatinine 0.46 Est Glomerular Filtrat Rate mL/min Glucose Level 101 Hemoglobin A1c 5.6 Lactic Acid Level 1.5 Calcium Level 9.1 Total Bilirubin 0.2 Direct Bilirubin 0.00 Indirect Bilirubin 0.2 Aspartate Amino 19 Transf (AST/SGOT) Alanine 18 Aminotransferase (ALT/SG PT) Alkaline Phosphatase 76 Total Protein 6.4 # Albumin 3.5 # Globulin 2.90 Albumin/Globulin Ratio 1.20 Triglycerides Level 121 Cholesterol Level 119 LDL Cholesterol, 46 Calculated HDL Cholesterol 49 Cholesterol/HDL Ratio 2.4 Thyroid Stimulating 0.762 Hormone (TSH) Medications Medication Current Medications Ondansetron HCl (Zofran Inj) 4 mg BRIDGE ORDER PRN IV NAUSEA/VOMITING; Start 02/05/19 at 20:30; Stop 02/06/19 at 20:29 Acetaminophen (Tylenol Tab) 650 mg ER BRIDGE PRN PO .MILD PAIN 1-3 OR TEMP; Start 02/05/19 at 20:30; Stop 02/06/19 at 20:29 Sodium Chloride 1,000 ml @ 100 mls/hr Q10H IV Last administered on 02/06/19at 09:59; Admin Dose 100 MLS/HR; Start 02/05/19 at 21:45 IV Flush (NS 3 ml) 3 ml PER PROTOCOL IV ; Start 02/05/19 at 22:00 Ondansetron HCl (Zofran Inj) 4 mg Q6H PRN IV NAUSEA/VOMITING; Start 02/05/19 at 22:00 Acetaminophen (Tylenol Tab) 650 mg Q6H PRN PO .PAIN 1-3 OR TEMP; Start 02/05/19 at 22:00 Docusate Sodium (Colace) 100 mg Q12H PRN PO .CONSTIPATION; Start 02/05/19 at 22 :00 Bisacodyl (Dulcolax) 5 mg DAILY PRN PO .CONSTIPATION; Start 02/05/19 at 22:00 Enalaprilat (Vasotec Iv) 1.25 mg Q6H PRN IV ELEVATED BLOOD PRESSURE; Start 02/05/19 at 22:00 Hydromorphone HCl (Dilaudid) 1 mg Q3H PRN IV SEVERE PAIN LEVEL 7-10 Last administered on 02/06/19at 13:57; Admin Dose 1 MG; Start 02/06/19 at 03:00 Pantoprazole (Protonix Iv) 40 mg DAILY@06 IV Last administered on 02/06/19at 05: 36; Admin Dose 40 MG; Start 02/06/19 at 04:31 ALEXI COPELAND NP Feb 06, 2019 15:35
[2019-02-06] MEDS ORDERED: DIATR MEGLU/DIATRIZOATE SODIUM 120 ML BTL ONE (15:37)
[2019-02-06 20:00] VITALS: BP 163/89; PULSE 88; RESP 19
[2019-02-07 02:00] VITALS: BP 147/74; PULSE 81; RESP 17
[2019-02-07] MEDS: PANTOPRAZOLE 40 MG INJ IV SCH (06:08)
[2019-02-07 07:58] VITALS: BP 161/78; PULSE 82; RESP 18
--- NOTE | 2019-02-07 08:09 | PN ---
Date/Time of Note Date/Time of Note DATE: 02/07/19 TIME: 08:06 Assessment/Plan Lines/Catheters IV Catheter Type (from Nrsg): Peripheral IV Sween[place] in Place (from Nrsg): No Assessment/Plan Chief Complaint/Hosp Course 78-year-old female 6 weeks status post right total knee arthroplasty. Unfortunately she was readmitted to the hospital for small bowel obstruction. This is being managed by medicine. General surgery was consulted. From a total knee arthroplasty) she is doing very well. She needs to continue to have physical therapy while admitted to the hospital. On discharge she will need home health physical therapy restarted. She will need physical therapy 23 times a week for right total knee arthroplasty for range of motion, strength, mobilization. Patient should follow-up with me in 6 weeks. Subjective 24 Hr Interval Summary Patient was admitted to the hospital for small bowel obstruction. She is 6 weeks status post right total knee arthroplasty. In regards to her total knee arthroplasty the pain has continued to improve and her range of motion is continue to improve. No acute events overnight Exam/Review of Systems Vital Signs Vitals Vital Signs Date Temp Pulse Resp B/P (MAP) Pulse Ox O2 O2 Flow FiO2 Time Delivery Rate 02/07/19 98.2 82 18 161/78 95 Room Air 07:58 (105) Intake and Output 02/06/19 02/06/19 02/07/19 1515:00 23:00 07:00 IntakeIntake Total 1000 ml 700 ml 1000 ml BalanceBalance 1000 ml 700 ml 1000 ml Exam Free Text/Dictation Right lower extremity: Incision: Well-healed, no erythema ROM 0-120. stable Sensation intact to light touch in a sural, saphenous, deep peroneal, superficial peroneal, medial and lateral plantar nerve distribution. Motor is intact, patient able to dorsiflex and plantarflex ankle and extend and flex great toe. Dorsalis Pedis pulse +2, Brisk capillary refill. Compartments are soft. Calves non-tender to palpation bilaterally. Results Result Diagram: 02/07/19 0550 02/07/19 0550 MYNOR LORD MD Feb 07, 2019 08:09
[2019-02-07] MEDS: SOD CHLORIDE 0.9% 1,000 ML IV SCH (11:32)
[2019-02-07 14:00] VITALS: BP 149/69; PULSE 88; RESP 18
--- NOTE | 2019-02-07 15:02 | PN ---
Date/Time of Note Date/Time of Note DATE: 02/07/19 TIME: 14:57 Assessment/Plan VTE Prophylaxis Risk score (from Ns)>0 risk: 5 SCD applied (from [facility] [place]): Yes Pharmacological prophylaxis: NA/contraindicated Pharm contraindication: low risk/ambulating Lines/Catheters IV Catheter Type (from [facility]): Peripheral IV Urinary Cath still in place: No Assessment/Plan Hospital Course SUBJECTIVE: Denies any abdominal pain at this time. Having multiple loose stools. OBJECTIVE: Physical Exam General: Obese, 78 year-old female lying in bed in no apparent distress. HEENT: Normocephalic, atraumatic. Eyes: Anicteric sclerae, conjunctivae clear. ENT: Nasal septum midline, oral mucosa is dry. Neck supple. Respiratory: Bilaterally diminished breath sounds. No use of accessory muscles of respiration. No adventitious breath sounds. Cardiovascular: S1, S2 heard. Regular rate and rhythm. Abdomen: Soft and nondistended. Multiple scars from abdominal surgery. Bowel sounds positive in all 4 quadrants. Genitourinary: Deferred. Extremities: No cyanosis, no clubbing, no edema. Peripheral pulses palpable. Neurologic: Cranial nerves II through XII grossly intact. The patient is awake, alert, and oriented. Skin: Normal skin turgor. No skin rashes. Labs & Vitals per chart ASSESSMENT & PLAN This a 78-year-old female with comorbidities including gastritis, hypertension, hyperlipidemia, and multiple abdominal surgeries. The patient came to the emergency room with chief complaint of abdominal pain. The patient's abdominal imaging showed small bowel obstruction pattern. Therefore, the patient was admitted to inpatient setting for further treatment and evaluation. 1. Abdominal pain in a patient with history of recurrent small bowel obstruction. -CT scan showing evidence of small bowel obstruction. -S/P NGT decompression. -Small bowel follow through negative. -Started on clear liquids. -General surgery has been consulted. 2. Lactic acidosis. -Most probably secondary to #1. 3. Essential hypertension. -Continue antihypertensives. 4. History of dyslipidemia. -Fasting lipid panel satisfactory. 5. Obesity. -BMI of 32 kg/m. 6. Fluids, electrolytes, and nutrition.. -Continue clear liquids. -Advance diet as tolerated per surgery. 7. DVT prophylaxis. -Bilateral SCDs. 8. Plan. -Await surgical evaluation. -Advance diet as tolerated as per surgery. The patient was seen in collaboration with Dr. Wiley. Result Diagram: 02/07/19 0550 02/07/19 0550 Results 24hrs Laboratory Tests Test 02/07/19 05:50 White Blood Count 7.7 # Red Blood Count 4.23 Hemoglobin 12.1 Hematocrit 38.0 Mean Corpuscular Volume 89.8 Mean Corpuscular Hemoglobin 28.6 L Mean Corpuscular Hemoglobin Concent 31.8 L Red Cell Distribution Width 13.9 Platelet Count 350 Mean Platelet Volume 9.2 Immature Granulocytes % 0.400 Neutrophils % 67.0 Lymphocytes % 20.4 Monocytes % 9.2 Eosinophils % 2.5 Basophils % 0.5 Nucleated Red Blood Cells % 0.0 Immature Granulocytes # 0.030 Neutrophils # 5.2 Lymphocytes # 1.6 Monocytes # 0.7 Eosinophils # 0.2 Basophils # 0.0 Nucleated Red Blood Cells # 0.0 Sodium Level 143 Potassium Level 3.9 Chloride Level 108 Carbon Dioxide Level 27 Anion Gap 8 Blood Urea Nitrogen 8 Creatinine 0.48 Est Glomerular Filtrat Rate mL/min Glucose Level 88 Calcium Level 9.7 Phosphorus Level 4.3 Magnesium Level 2.0 Exam/Review of Systems Exam Vitals Vital Signs Date Temp Pulse Resp B/P (MAP) Pulse Ox O2 O2 Flow FiO2 Time Delivery Rate 02/07/19 98.1 88 18 149/69 93 Room Air 14:00 (95) Intake and Output 02/06/19 02/06/19 02/07/19 1515:00 23:00 07:00 IntakeIntake Total 1000 ml 700 ml 1000 ml BalanceBalance 1000 ml 700 ml 1000 ml Results Results 24hrs Laboratory Tests Test 02/07/19 05:50 White Blood Count 7.7 # Red Blood Count 4.23 Hemoglobin 12.1 Hematocrit 38.0 Mean Corpuscular Volume 89.8 Mean Corpuscular Hemoglobin 28.6 L Mean Corpuscular Hemoglobin Concent 31.8 L Red Cell Distribution Width 13.9 Platelet Count 350 Mean Platelet Volume 9.2 Immature Granulocytes % 0.400 Neutrophils % 67.0 Lymphocytes % 20.4 Monocytes % 9.2 Eosinophils % 2.5 Basophils % 0.5 Nucleated Red Blood Cells % 0.0 Immature Granulocytes # 0.030 Neutrophils # 5.2 Lymphocytes # 1.6 Monocytes # 0.7 Eosinophils # 0.2 Basophils # 0.0 Nucleated Red Blood Cells # 0.0 Sodium Level 143 Potassium Level 3.9 Chloride Level 108 Carbon Dioxide Level 27 Anion Gap 8 Blood Urea Nitrogen 8 Creatinine 0.48 Est Glomerular Filtrat Rate mL/min Glucose Level 88 Calcium Level 9.7 Phosphorus Level 4.3 Magnesium Level 2.0 Medications Medication Current Medications Sodium Chloride 1,000 ml @ 100 mls/hr Q10H IV Last administered on 02/07/19 11:32; Admin Dose 100 MLS/HR; Start 02/05/19 at 21:45 IV Flush (NS 3 ml) 3 ml PER PROTOCOL IV ; Start 02/05/19 at 22:00 Ondansetron HCl (Zofran Inj) 4 mg Q6H PRN IV NAUSEA/VOMITING; Start 02/05/19 at 22:00 Acetaminophen (Tylenol Tab) 650 mg Q6H PRN PO .PAIN 1-3 OR TEMP Last administered on 02/07/19at 11:51; Admin Dose 650 MG; Start 02/05/19 at 22:00 Docusate Sodium (Colace) 100 mg Q12H PRN PO .CONSTIPATION; Start 02/05/19 at 22:00 Bisacodyl (Dulcolax) 5 mg DAILY PRN PO .CONSTIPATION; Start 02/05/19 at 22:00 Enalaprilat (Vasotec Iv) 1.25 mg Q6H PRN IV ELEVATED BLOOD PRESSURE; Start 02/05/19 at 22:00 Hydromorphone HCl (Dilaudid) 1 mg Q3H PRN IV SEVERE PAIN LEVEL 7-10 Last administered on 02/06/19at 13:57; Admin Dose 1 MG; Start 02/06/19 at 03:00 Pantoprazole (Protonix Iv) 40 mg DAILY@06 IV Last administered on 02/07/19 06:08; Admin Dose 40 MG; Start 02/06/19 at 04:31 Saccharomyces Boulardii (Florastor) 500 mg BID PO ; Start 02/07/19 at 14:30 ALEXI COPELAND NP Feb 07, 2019 15:02
--- NOTE | 2019-02-07 16:03 | CONS ---
DATE OF ADMISSION: 02/05/2019 DATE OF CONSULTATION: 02/07/2019 TYPE OF CONSULTATION: Surgical. REQUESTING PHYSICIAN: ____, the hospitalist nurse practitioner. Actually consultation was requested from Dr. Adam and I am seeing the patient for Dr. Adam' service . REASON FOR CONSULTATION: The patient has been admitted through the emergency room with the impressio n of small-bowel obstruction which was suggested by the CT scan finding. HISTORY OF PRESENT ILLNESS: Actually this patient has been doing fine at home until Sunday when this Sunday the patient started to experience severe abdominal and epigastric pain with nausea, no vomiti ng, and so was later on associated with diarrhea for 2 days, which is Sunday and Sunday. On ay the diarrhea stopped, but still the patient continued to have severe pain, nausea, so the patient came to the emergency room, was evaluated and CT scan was obtained. IMAGING: CT scan impression: 1. Compared to the prior exam of 04/10/2017 there has been development of a small-bowel obstruction pattern, either a high-grade partial distal small-bowel obstruction, distal small-bowel obstruction w ithout discernible transition point. 2. There is no evidence of pneumoperitoneum, ascites, mesenteric edema, or mesenteric vascular engo rgement. 3. Herniorrhaphy mesh with a broad-based ventral hernia similar to the prior exam. 4. Diffuse diverticular disease of the colon, most pronounced in the distal segment without divertic ulitis. 5. Previous seen concerning right posterior interpolar renal lesion is no longer evident. A concave defect in this location suggests interval treatment. Simple-appearing right renal cyst is again not iced. PAST MEDICAL HISTORY: History of hyperlipidemia, GERD, hypertension and history of perforated duoden al ulcer with operation, history of appendectomy with perforated appendix and laparotomy for taking c are of the peritonitis, and following that patient has had 5 or 6 abdominal operations for complicati ons are ____ for the hernia and also the last time has had a hernia repair with mesh application. PHYSICAL EXAMINATION GENERAL: Alert, awake, oriented. No acute distress. VITAL SIGNS: Temperature 98.2, heart rate 82, respirations 18, blood pressure 161/78, saturation 95% , room air. HEART: Regular. LUNGS: Clear. ABDOMEN: Soft. Bowel sound is present, almost normal. There are multiple eschars more prominent in the midline scar and the distance between the epigastric area and the umbilicus appears that there i s a recurrence of the hernia. There is some weakness in the midline, but there is no bowel or omentu m stuck in that (on the x-ray/CT scan shows broad-based hernia in this area). EXTREMITIES: Lower extremity, there is a scar of the recent operation for total knee on the right si de. The left knee is abnormal with valgus deformity. Dorsalis pedis pulses bilaterally are 1+. LABORATORY DATA: WBC is down to 7700 with 67% segmented, hemoglobin is 12.1, hematocrit 38. Apartment [employer] ry: Today sodium and potassium normal, BUN and creatinine normal. ASSESSMENT AND PLAN: This is an 78-year-old female who has some medical problems as well as has had several laparotomies in the past for perforated appendicitis and also for hernia repairs. She has be en admitted in this hospital a couple of times for possible small-bowel obstruction which was resolve d with no operation. This patient experienced 3 days of abdominal pain, nausea, diarrhea, for which she came to the emergency room and was admitted with impression of small-bowel obstruction. CT scan was impression of possible small-bowel obstruction. The patient received NG tube suction and last ni ght the patient had a small-bowel follow-through, the result of the small-bowel follow-through with G astrografin shows that the contrast material reached the colon within 2 hours and there is no evidenc e of obstruction and bowel diameter which was dilated has normalized almost. Therefore, this patient does not have a small obstruction. It is possible that the patient has had food poisoning, consider ing abdominal pain, nausea and diarrhea. Of course since last night after having GI small-bowel seri es with Gastrografin, patient has had diarrhea, but this is different because this is the effect of t he Gastrografin. PLAN: From surgical standpoint, the patient can be started on clear and full liquid diet and advance it and observe it for 1 more night, if possible give her regular food tonight. If she tolerates and no problem by tomorrow, the patient can be discharged tomorrow. Thank you for consultation. We will continue to follow. Dictated By: AAMIR SCHULER/HARDEEP Conf#: [id number] [facility]#: [id number]
[2019-02-07] MEDS: SACCHAROMYCES BOULARDII 250 MG CAP PO SCH ×2 (17:29→20:35)
[2019-02-07] MEDS: HYDROCHLOROTHIAZIDE 25 MG TAB PO SCH (17:29)
[2019-02-07] MEDS: AMLODIPINE 5 MG TAB PO SCH (17:29)
[2019-02-07] MEDS: LOSARTAN 50 MG TAB PO SCH (17:30)
[2019-02-07 19:37] VITALS: BP 141/70; PULSE 72; RESP 16
[2019-02-07] MEDS: ASPIRIN (EC) 81 MG TAB PO SCH (20:35)
[2019-02-08] MEDS: SOD CHLORIDE 0.9% 1,000 ML IV SCH ×3 (00:07→20:28)
[2019-02-08 01:44] VITALS: BP 130/63; PULSE 70; RESP 18
[2019-02-08] MEDS: PANTOPRAZOLE 40 MG INJ IV SCH (05:42)
[2019-02-08] MEDS: HYDROCHLOROTHIAZIDE 25 MG TAB PO SCH (05:44)
[2019-02-08 07:25] VITALS: BP 131/72; PULSE 72; RESP 17
[2019-02-08] MEDS ORDERED: NON-FORMULARY/PATIENT OWN MED (Omeprazole* 20 MG) PO SCH (09:00)
[2019-02-08] MEDS: SACCHAROMYCES BOULARDII 250 MG CAP PO SCH ×2 (09:02→20:29)
[2019-02-08] MEDS: ASPIRIN (EC) 81 MG TAB PO SCH ×2 (09:02→20:29)
[2019-02-08] MEDS: AMLODIPINE 5 MG TAB PO SCH (09:03)
[2019-02-08] MEDS: LOSARTAN 50 MG TAB PO SCH (09:03)
[2019-02-08 13:44] VITALS: BP 120/65; PULSE 74; RESP 17
[2019-02-08] MEDS ORDERED: POTASSIUM CHLORIDE (SR) 20 MEQ TAB PO STA (15:24)
--- NOTE | 2019-02-08 16:01 | PN ---
Date/Time of Note Date/Time of Note DATE: 02/08/19 TIME: 15:59 Assessment/Plan VTE Prophylaxis Risk score (from Ns)>0 risk: 6 SCD applied (from Ns): Yes Pharmacological prophylaxis: NA/contraindicated Pharm contraindication: low risk/ambulating Lines/Catheters IV C[facility]ter Type (from [facility]): Peripheral IV Urinary Cath still in place: No Assessment/Plan Hospital Course SUBJECTIVE: Denies any abdominal pain at this time. Having multiple loose stools. OBJECTIVE: Physical Exam General: Obese, 78 year-old female lying in bed in no apparent distress. HEENT: Normocephalic, atraumatic. Eyes: Anicteric sclerae, conjunctivae clear. ENT: Nasal septum midline, oral mucosa is dry. Neck supple. Respiratory: Bilaterally diminished breath sounds. No use of accessory muscles of respiration. No adventitious breath sounds. Cardiovascular: S1, S2 heard. Regular rate and rhythm. Abdomen: Soft and nondistended. Multiple scars from abdominal surgery. Bowel sounds positive in all 4 quadrants. Genitourinary: Deferred. Extremities: No cyanosis, no clubbing, no edema. Peripheral pulses palpable. Neurologic: Cranial nerves II through XII grossly intact. The patient is awake, alert, and oriented. Skin: Normal skin turgor. No skin rashes. Labs & Vitals per chart ASSESSMENT & PLAN This a 78-year-old female with comorbidities including gastritis, hypertension, hyperlipidemia, and multiple abdominal surgeries. The patient came to the emergency room with chief complaint of abdominal pain. The patient's abdominal imaging showed small bowel obstruction pattern. Therefore, the patient was admitted to inpatient setting for further treatment and evaluation. 1. Abdominal pain in a patient with history of recurrent small bowel obstruction. -CT scan showing evidence of small bowel obstruction. -S/P NGT decompression. -Small bowel follow through negative. -Started on clear liquids. -General surgery saw the patient who agreed with the plan. 2. S/P lactic acidosis. -Most probably secondary to #1. 3. 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 -Status post follow-up evaluation by the orthopedic surgeon. 4. Essential hypertension. -Continue antihypertensives. 5. History of dyslipidemia. -Fasting lipid panel satisfactory. 6. Obesity. -BMI of 32 kg/m. 7. Fluids, electrolytes, and nutrition.. -Advance diet as tolerated per surgery. 8. DVT prophylaxis. -Bilateral SCDs. 9. Plan. -Advance diet as tolerated as per surgery. The patient was seen in collaboration with Dr. Wiley. Result Diagram: 02/08/1943 02/08/1943 Results 24hrs Laboratory Tests Test 02/08/19 06:43 White Blood Count 7.1 Red Blood Count 4.36 Hemoglobin 12.5 Hematocrit 38.1 Mean Corpuscular Volume 87.4 Mean Corpuscular Hemoglobin 28.7 L Mean Corpuscular Hemoglobin Concent 32.8 Red Cell Distribution Width 13.6 Platelet Count 354 Mean Platelet Volume 9.2 Immature Granulocytes % 0.300 Neutrophils % 65.4 Lymphocytes % 22.5 Monocytes % 8.5 Eosinophils % 2.5 Basophils % 0.8 Nucleated Red Blood Cells % 0.0 Immature Granulocytes # 0.020 Neutrophils # 4.7 Lymphocytes # 1.6 Monocytes # 0.6 Eosinophils # 0.2 Basophils # 0.1 Nucleated Red Blood Cells # 0.0 Sodium Level 140 Potassium Level 3.3 L Chloride Level 105 Carbon Dioxide Level 25 Anion Gap 10 Blood Urea Nitrogen 6 L Creatinine 0.47 Est Glomerular Filtrat Rate mL/min Glucose Level 93 Calcium Level 9.8 Phosphorus Level 4.6 Magnesium Level 1.8 Exam/Review of Systems Exam Vitals Vital Signs Date Temp Pulse Resp B/P (MAP) Pulse Ox O2 O2 Flow FiO2 Time Delivery Rate 02/08/19 98.2 74 17 120/65 94 13:44 (83) 02/07/19 Room Air 14:00 Intake and Output 02/07/19 02/07/19 02/08/19 1515:00 23:00 07:00 IntakeIntake Total 660 ml 380 ml 1600 ml BalanceBalance 660 ml 380 ml 1600 ml Results Results 24hrs Laboratory Tests Test 02/08/19 06:43 White Blood Count 7.1 Red Blood Count 4.36 Hemoglobin 12.5 Hematocrit 38.1 Mean Corpuscular Volume 87.4 Mean Corpuscular Hemoglobin 28.7 L Mean Corpuscular Hemoglobin Concent 32.8 Red Cell Distribution Width 13.6 Platelet Count 354 Mean Platelet Volume 9.2 Immature Granulocytes % 0.300 Neutrophils % 65.4 Lymphocytes % 22.5 Monocytes % 8.5 Eosinophils % 2.5 Basophils % 0.8 Nucleated Red Blood Cells % 0.0 Immature Granulocytes # 0.020 Neutrophils # 4.7 Lymphocytes # 1.6 Monocytes # 0.6 Eosinophils # 0.2 Basophils # 0.1 Nucleated Red Blood Cells # 0.0 Sodium Level 140 Potassium Level 3.3 L Chloride Level 105 Carbon Dioxide Level 25 Anion Gap 10 Blood Urea Nitrogen 6 L Creatinine 0.47 Est Glomerular Filtrat Rate mL/min Glucose Level 93 Calcium Level 9.8 Phosphorus Level 4.6 Magnesium Level 1.8 Medications Medication Current Medications Sodium Chloride 1,000 ml @ 100 mls/hr Q10H IV Last administered on 02/08/19 09:47; Admin Dose 100 MLS/HR; Start 02/05/19 at 21:45 IV Flush (NS 3 ml) 3 ml PER PROTOCOL IV ; Start 02/05/19 at 22:00 Ondansetron HCl (Zofran Inj) 4 mg Q6H PRN IV NAUSEA/VOMITING; Start 02/05/19 at 22:00 Acetaminophen (Tylenol Tab) 650 mg Q6H PRN PO .PAIN 1-3 OR TEMP Last administered on 02/07/19 11:51; Admin Dose 650 MG; Start 02/05/19 at 22:00 Docusate Sodium (Colace) 100 mg Q12H PRN PO .CONSTIPATION; Start 02/05/19 at 22:00 Bisacodyl (Dulcolax) 5 mg DAILY PRN PO .CONSTIPATION; Start 02/05/19 at 22:00 Enalaprilat (Vasotec Iv) 1.25 mg Q6H PRN IV ELEVATED BLOOD PRESSURE; Start 02/05/19 at 22:00 Hydromorphone HCl (Dilaudid) 1 mg Q3H PRN IV SEVERE PAIN LEVEL 7-10 Last administered on 02/06/19 13:57; Admin Dose 1 MG; Start 02/06/19 at 03:00 Pantoprazole (Protonix Iv) 40 mg DAILY@06 IV Last administered on 02/08/19 05:42; Admin Dose 40 MG; Start 02/06/19 at 04:31 Saccharomyces Boulardii (Florastor) 500 mg BID PO Last administered on 02/08/19 09:02; Admin Dose 500 MG; Start 02/07/19 at 14:30 Amlodipine Besylate (Norvasc) 5 mg DAILY PO Last administered on 02/08/19 09:03; Admin Dose 5 MG; Start 02/07/19 at 16:30 Aspirin (Halfprin) 81 mg BID PO Last administered on 02/08/19at 09:02; Admin Dose 81 MG; Start 02/07/19 at 21:00 Hydrochlorothiazide (Hydrochlorothiazide) 25 mg DAILY@0600 PO Last administered on 02/08/19at 05:44; Admin Dose 25 MG; Start 02/07/19 at 16:30 Losartan Potassium (Cozaar) 50 mg DAILY PO Last administered on 02/08/19at 09:03; Admin Dose 50 MG; Start 02/07/19 at 16:30 ALEXI COPELAND NP Feb 08, 2019 16:01
--- NOTE | 2019-02-08 19:11 | PN ---
DATE: 02/08/2019 SUBJECTIVE: No new complaint. Has had 1 loose bowel movement. No nausea, no vomiting, minimal abdo vanessa pain. Has tolerated clear liquids so far. OBJECTIVE: GENERAL: Awake, alert, and oriented. VITAL SIGNS: Temperature today maximum 98.2, heart rate 74, respirations 17, blood pressure 120/65, [id number]% on room air. LABORATORY DATA: Sodium normal, potassium 3.3 low, BUN and creatinine normal. Hematology: WBC down to 7.1, differential 65% neutrophils, which is normal. Hemoglobin is stable at 12.5, hematocrit 38. 1. CLINICAL EXAMINATION: HEART: Regular. LUNGS: Clear. ABDOMEN: Soft, bowel sounds present. No rigidity, no rebound. ASSESSMENT AND PLAN: An 78-year-old female who presented to the emergency room with abdominal pain, nausea, vomiting and also history of diarrhea with the impression of small-bowel obstruction. The oh liliana was admitted. The patient continued to have bowel movements. A small bowel series revealed th at there was no obstruction. The contrast reached to the colon within 2 hours. The patient was star tim on clear liquids yesterday, has tolerated so far. We are going to advance diet to full liquid an d if tolerated, advance to regular diet. Most probably the patient's problem has been food poisoning . Dictated By: AAMIR STANLEY MD PS/HARDEEP Conf#: [id number] DID#: [id number] CC: ASHLEY CAZARES MD;*EndCC*
[2019-02-08 19:35] VITALS: BP 127/66; PULSE 73; RESP 16
[2019-02-09 01:35] VITALS: BP 141/82; PULSE 75; RESP 75
[2019-02-09] MEDS: PANTOPRAZOLE 40 MG INJ IV SCH (05:58)
[2019-02-09] MEDS: SOD CHLORIDE 0.9% 1,000 ML IV SCH (05:58)
[2019-02-09 06:02] VITALS: BP 141/73; PULSE 72; RESP 16
[2019-02-09] MEDS: HYDROCHLOROTHIAZIDE 25 MG TAB PO SCH (06:03)
[2019-02-09 08:00] VITALS: BP 144/75; PULSE 74; RESP 18
[2019-02-09] MEDS: SACCHAROMYCES BOULARDII 250 MG CAP PO SCH (08:19)
[2019-02-09] MEDS: AMLODIPINE 5 MG TAB PO SCH (08:19)
[2019-02-09] MEDS: ASPIRIN (EC) 81 MG TAB PO SCH (08:19)
[2019-02-09] MEDS: LOSARTAN 50 MG TAB PO SCH (08:21)
--- NOTE | 2019-02-09 11:53 | PDOCDIS ---
Discharge Instructions CONDITION [id number] Patient Condition: [id number] Stable HOME CARE INSTRUCTIONS: [id number] Diet Instructions: [id number] Low Fat /Cholesterol OTHER ORDERS: Other Orders: 1. Resume home medications. 2. Take a low-cholesterol diet as tolerated. 3. Please follow-up with your primary care physician in 2 weeks. 4. Resume activities as tolerated. ALEXI COPELAND NP Feb 09, 2019 11:53
--- NOTE | 2019-02-09 12:33 | DS ---
Date/Time of Note Date/Time of Note DATE: 02/09/19 TIME: 12:28 Discharge Summary Admission/Discharge Info Admit Date/Time Feb 05, 2019 at 20:25 Discharge Date/Time Discharge Diagnosis 1. Abdominal pain in a patient with history of recurrent small bowel obstructi on. 2. S/P lactic acidosis. 3. 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 4. Essential hypertension. 5. History of dyslipidemia. 6. Obesity. BMI of 32 kg/m. Patient Condition: Stable Consults 1. Ashlyn Damian MD, Gastroenterology. 2. Raghav Torres MD, Orthopedic Surgery. Procedures CT Abdomen & Pelvis on 02/05/2019 IMPRESSION: 1. Compared to the prior exam of 04/10/2017, there has been development of a small bowel obstruction pattern, either a high-grade partial distal small bowel obstruction distal small bowel obstruction without a discernible transition point. 2. There is no evidence of pneumoperitoneum, ascites, mesenteric edema or mesenteric vascular engorgement. 3. Herniorrhaphy mesh with a broad-based ventral hernia similar to the prior exam. 4. Diffuse diverticular disease of the colon most pronounced in the distal segments without diverticulitis. 5. Previously seen concerning right posterior interpolar renal lesion is no longer evident, a concave defect in this location suggest interval treatment, simple appearing right renal cyst is again noted. Small Bowel Series on 02/06/2019 IMPRESSION: No small bowel obstruction. Hx of Present Illness This is a 78-year-old female with comorbidities including gastritis, hypertens ion, hyperlipidemia, and multiple abdominal surgeries. The patient came to the emergency room with chief complaint of abdominal pain. The patient's abdominal imaging showed small bowel obstruction pattern. Therefore, the patient was admitted to inpatient setting for further treatment and evaluation. Hospital Course The patient's CT scan was showing evidence of recurrent small bowel obstruction. The patient was started on NGT decompression. The patient responded well to NGT decompression. The patient's repeat bowel follow-through was negative for any small bowel obstruction. The patient was started on a clear liquid diet. The patient's diet was advanced as tolerated to a regular consistency diet without any significant gastrointestinal symptoms. The patient had lactic acidosis present on admission. This was most probably secondary to the underlying intra-abdominal process. The patient remained afebrile. The patient's leukocytosis resolved over the course of her hospital stay. The patient was not maintained on any antibiotics. The patient has a recent right total knee arthroplasty done on 12/25/2018. The patient was evaluated by the orthopedic surgeon during this hospitalization. The patient has hypertension and the patient was maintained on antihypertensives. The patient has a history of dyslipidemia. The patient's fasting lipid panel was satisfactory. The patient is obese with a BMI of 32 kg/m. The patient was advised on weight reduction. The patient had a stable hospital course. The patient was cleared by general surgery to be discharged home. Discharge Instructions 1. Resume home medications. 2. Take a low-cholesterol diet as tolerated. 3. Please follow-up with your primary care physician in 2 weeks. 4. Resume activities as tolerated. The patient verbalized understanding of her discharge instructions. At this time I would like to thank all the consultants for seeing the patient and providing clinical recommendations. The patient was seen in collaboration with Dr. Wiley. Home Meds Active Scripts Aspirin Delayed Release (Aspirin Delayed Release) 81 Mg Tablet., 81 MG PO BID for 30 Days Prov:ROSCOE YANES MD 12/26/18 Reported Medications Magaldrate/Simethicone* (Mag-Al Plus Suspension*) 30 Ml Oral.susp, 30 ML PO Q6H PRN for GASTROINTESTINAL UPSET, ML 02/05/19 [place]-3 Acid Ethyl Esters (Lovaza) 1 Gm Capsule, 4 GM PO DAILY, CAP 02/05/19 Omeprazole* (Omeprazole*) 20 Mg Capsule.dr, 20 MG PO DAILY, #30 CAP 02/05/19 Losartan Potassium* (Losartan Potassium*) 50 Mg Tablet, 50 MG PO DAILY, TAB 12/24/18 Hydrochlorothiazide* (Hydrochlorothiazide*) 25 Mg Tab, 25 MG PO DAILY, #30 TAB 12/24/18 Amlodipine Besylate* (Norvasc*) 5 Mg Tablet, 5 MG PO DAILY, TAB 12/24/18 Discontinued Reported Medications Electrolyte,Oral (Pedialyte) 1,000 Ml Solution, 100 ML PO Q6 PRN for GASTROINTESTINAL UPSET, ML 02/05/19 Ibuprofen* (Ibuprofen*) 200 Mg Capsule, 200 MG PO QID PRN for PAIN, CAP 02/05/19 Gabapentin* (Gabapentin*) 300 Mg Capsule, 300 MG PO QHS, #60 CAP 12/24/18 Discontinued Scripts Oxycodone Hcl* (IR) (Roxicodone*) 5 Mg Tab, 5 MG PO Q4H PRN for .PAIN for 10 Days, TAB Prov:ROSCOE YANES MD 12/26/18 Pantoprazole* (Pantoprazole*) 40 Mg Tablet.dr, 40 MG PO DAILY@06 for 10 Days Prov:ROSCOE YANES MD 12/26/18 Follow-up Plan Patient to follow-up with her primary care physician in 2 weeks. Primary Care Provider Not On Staff Doctor Time spent on discharge: > 30 minutes Pending Labs Laboratory Tests Test 02/09/19 06:24 White Blood Count 6.4 10^3/ul (4.8-10.8) Red Blood Count 4.27 10^6/ul (4.20-5.40) Hemoglobin 12.2 g/dl (12.0-16.0) Hematocrit 37.2 % (37.0-47.0) Mean Corpuscular Volume 87.1 fl (82.0-101.0) Mean Corpuscular Hemoglobin 28.6 pg (29.0-33.0) Mean Corpuscular Hemoglobin Concent 32.8 g/dl (32.0-37.0) Red Cell Distribution Width 13.6 % (11.5-14.5) Platelet Count 355 10^3/UL (140-415) Mean Platelet Volume 9.1 fl (7.4-10.4) Immature Granulocytes % 0.300 % (0.001-0.429) Neutrophils % 57.5 % (39.0-77.0) Lymphocytes % 30.5 % (15.0-51.0) Monocytes % 8.8 % (0.0-11.0) Eosinophils % 2.3 % (0.0-7.0) Basophils % 0.6 % (0.0-2.0) Nucleated Red Blood Cells % 0.0 /100WBC (0.0-0.0) Immature Granulocytes # 0.020 10^3/ul (0.0-0.031) Neutrophils # 3.7 10^3/ul (1.6-7.5) Lymphocytes # 2.0 10^3/ul (0.8-2.9) Monocytes # 0.6 10^3/ul (0.3-0.9) Eosinophils # 0.2 10^3/ul (0.0-0.5) Basophils # 0.0 10^3/ul (0.0-0.1) Nucleated Red Blood Cells # 0.0 10^3/ul (0.0-0.0) Sodium Level 142 mmol/L (135-144) Potassium Level 3.6 mmol/L (3.5-5.1) Chloride Level 109 mmol/L (97-110) Carbon Dioxide Level 26 mmol/L (21-31) Anion Gap 7 (5-13) Blood Urea Nitrogen 6 mg/dl (7-20) Creatinine 0.49 mg/dl (0.44-1.00) Est Glomerular Filtrat Rate mL/min mL/min (>60) Glucose Level 88 mg/dl (70-220) Calcium Level 9.6 mg/dl (8.4-10.2) Phosphorus Level 4.3 mg/dl (2.5-4.9) Magnesium Level 1.8 mg/dl (1.7-2.5) Total Bilirubin 0.4 mg/dl (0.2-1.3) Direct Bilirubin 0.00 mg/dl (0.00-0.20) Indirect Bilirubin 0.4 mg/dl (0-1.1) Aspartate Amino Transf (AST/SGOT) 25 IU/L (15-46) Alanine Aminotransferase (ALT/SGPT) 20 IU/L (13-69) Alkaline Phosphatase 75 IU/L (42-121) Total Protein 6.7 g/dl (6.1-8.1) Albumin 3.6 g/dl (3.3-4.9) Globulin 3.10 g/dl (1.3-3.2) Albumin/Globulin Ratio 1.16 ALEXI COPELAND NP Feb 09, 2019 12:33
--- NOTE | 2019-02-09 14:11 | PN ---
DATE: 02/09/2019 SUBJECTIVE: No complaints, has tolerated diet, has had bowel movement, no nausea, no vomiting. OBJECTIVE: GENERAL: Awake, alert, oriented x3. VITAL SIGNS: Temperature today 98.3, heart rate 75, respiration 18, blood pressure 141/73, saturatio n 97% room air. HEART: Regular. LUNGS: Clear. ABDOMEN: Soft. No tenderness. LABORATORY DATA: WBC 6400 with 57% segmented differential, which is normal differential. Hemoglobin is stable at 12.2, hematocrit 37.2. Chemistry: Magnesium, phosphorus, sodium, potassium, BUN, crea tinine within normal limits. IMPRESSION: This is an 78-year-old female who presented with history of two days, nausea, vomiting, diarrhea, was admitted with possible impression of small-bowel obstruction on the basis of radiology. The patient gradually got better. Small bowel follow through did not show any evidence of obstruct ion and the contrast reached the colon within 2 hours. The patient had bowel movements and gradually got better tolerance to diet and today is symptom-free and most probably this was a kind of food poi soning that the patient has experienced so the patient from surgical point of view is discharged and the medical service is going to discharge the patient. Dictated By: AAMIR STANLEY MD PS/NTS Conf#: [id number] DID#: [id number] CC: ASHLEY CAZARES MD;*EndCC*
== END 2019-02-09 12:56 | disposition home or self-care (01) | DRG 389 ==
LOC: E/R 17:06 → 5EC 20:25
PROVIDERS: ADMIT Family Medicine; ATTEND Family Medicine
DX: K56.600 Partial intestinal obstruction, unspecified as to cause (principal); E87.2 Acidosis; E66.9 Obesity, unspecified; Z68.32 Body mass index [BMI] 32.0-32.9, adult; I10 Essential (primary) hypertension; E78.5 Hyperlipidemia, unspecified; K21.9 Gastro-esophageal reflux disease without esophagitis; M81.0 Age-related osteoporosis without current pathological fracture; Z79.82 Long term (current) use of aspirin
CPT/HCPCS: 36415; 71045; 74176; 74250; 80048; 80053; 80061; 81003; 83036; 83605; 83690; 83735; 84100; 84443; 85025; 93005; 96374; 96375; 97110; 97116; 97162; 97530; C9113; J1170; J2405; J2543; J7030; J7120

== ENCOUNTER 2019-02-14 08:00 | Emergency (ER) | payer OTHER ==
[~2019-02-14] VITALS: Ht 152.4 cm; Wt 75.0 kg
[~2019-02-14 08:00] MED LIST changes: -GABA300C16 PO; +OMEG1CAP2 PO; +OMEP20CA16 PO; -OXYC-481 PO; -PANT40TA4 PO; +UDMYL PO
[2019-02-14 08:03] VITALS: Ht 152.4 cm; Wt 75.0 kg
[2019-02-14] MEDS ORDERED: BELLADONNA/PHENOBARBITAL TAB PO STA (08:43)
[2019-02-14] MEDS ORDERED: FAMOTIDINE 20 MG TAB PO STA (08:43)
[2019-02-14] MEDS ORDERED: LIDOCAINE/MYLANTA 40 ML BTL PO STA (08:43)
--- NOTE | 2019-02-14 08:52 | ERD ---
ER Documentation Chief Complaint Chief Complaint pt bib family with c/o abd pain starting 3 days ago HPI 78-year-old female presents with complaint of epigastric pain for the past 3 days. Pain is described as a constant burning sensation. In addition, she states that she has a burning sensation in her mouth which she thinks is caused by stomach acid. Patient was just here for a bowel obstruction about a week ago but states that this pain is different in nature. Last bowel movement was this morning. In addition she complains of dysuria since yesterday. Denies any constipation, vomiting, hematuria, back pain, fevers, , diarrhea, hematochezia, shortness of breath, diaphoresis, chest pain. ROS All systems reviewed and are negative except as per history of present illness. Medications Home Meds Active Scripts Magaldrate/Simethicone* (Mylanta*) 355 Ml Susp, 30 ML PO QID PRN for GASTROINTESTINAL UPSET, #1 BOTTLE Prov:YASSINE ORTIZ 02/14/19 Famotidine* (Pepcid*) 20 Mg Tablet, 20 MG PO BID for GERD for 10 Days, TAB Prov:YASSINE ORTIZ 02/14/19 Aspirin Delayed Release (Aspirin Delayed Release) 81 Mg Tablet.dr, 81 MG PO BID for 30 Days Prov:ROSCOE YANES MD 12/26/18 Reported Medications Magaldrate/Simethicone* (Mag-Al Plus Suspension*) 30 Ml Oral.susp, 30 ML PO Q6H PRN for GASTROINTESTINAL UPSET, ML 02/05/19 [place]-3 Acid Ethyl Esters (Lovaza) 1 Gm Capsule, 4 GM PO DAILY, CAP 02/05/19 Omeprazole* (Omeprazole*) 20 Mg Capsule.dr, 20 MG PO DAILY, #30 CAP 02/05/19 Losartan Potassium* (Losartan Potassium*) 50 Mg Tablet, 50 MG PO DAILY, TAB 12/24/18 Hydrochlorothiazide* (Hydrochlorothiazide*) 25 Mg Tab, 25 MG PO DAILY, #30 TAB 12/24/18 Amlodipine Besylate* (Norvasc*) 5 Mg Tablet, 5 MG PO DAILY, TAB 12/24/18 Discontinued Reported Medications Electrolyte,Oral (Pedialyte) 1,000 Ml Solution, 100 ML PO Q6 PRN for GASTROINTESTINAL UPSET, ML 02/05/19 Ibuprofen* (Ibuprofen*) 200 Mg Capsule, 200 MG PO QID PRN for PAIN, CAP 02/05/19 Discontinued Scripts Oxycodone Hcl* (IR) (Roxicodone*) 5 Mg Tab, 5 MG PO Q4H PRN for .PAIN for 10 Days, TAB Prov:ROSCOE YANES MD 12/26/18 Allergies Allergies: Coded Allergies: morphine (Unverified Allergy, Mild, RASH, 02/14/19) PMhx/Soc History of Surgery: Yes (hysterectomy, appendectomy, hernia surgery x2, right knee surgery(dec 2018)) Anesthesia Reaction: No Hx Neurological Disorder: No Hx Respiratory Disorders: No Hx Cardiac Disorders: Yes (htn) Hx Psychiatric Problems: No Hx Miscellaneous Medical Probl: No Hx Alcohol Use: No Hx Substance Use: No Hx Tobacco Use: No Physical Exam Vitals Vital Signs Date Temp Pulse Resp B/P (MAP) Pulse Ox O2 O2 Flow FiO2 Time Delivery Rate 02/14/19 94 18 142/75 98 Room Air 11:29 (97) 02/14/19 98.9 99 20 146/66 98 08:03 (92) Physical Exam Const: No acute distress Head: Atraumatic Eyes: Normal Conjunctiva ENT: Normal External Ears, Nose and Mouth. Neck: Full range of motion. No meningismus. No JVD. Resp: Clear to auscultation bilaterally Cardio: Regular rate and rhythm, no murmurs Abd: Tenderness to palpation in the epigastric area with no guarding or rigidity. Normal bowel sounds. Skin: No petechiae or rashes Back: No midline or flank tenderness Ext: No cyanosis, or edema Neur: Awake and alert Psych: Normal Mood and Affect Result Diagram: 02/14/19 0909 02/14/19 0908 Results 24 hrs Laboratory Tests Test 02/14/19 09:08 02/14/19 09:09 02/14/19 09:30 Prothrombin Time 12.5 Sec Prothrombin Time Ratio 1.0 INR International 0.92 Normalized Ratio Sodium Level 135 mmol/L Potassium Level 4.8 mmol/L Chloride Level 95 mmol/L Carbon Dioxide Level 26 mmol/L Anion Gap 14 Blood Urea Nitrogen 5 mg/dl Creatinine 0.47 mg/dl Est Glomerular Filtrat mL/min Rate mL/min Glucose Level 107 mg/dl Calcium Level 10.4 mg/dl Total Bilirubin 0.2 mg/dl Direct Bilirubin 0.00 mg/dl Indirect Bilirubin 0.2 mg/dl Aspartate Amino 26 IU/L Transf (AST/SGOT) Alanine 17 IU/L Aminotransferase (ALT/SGPT) Alkaline Phosphatase 92 IU/L Troponin I < 0.012 ng/ml Total Protein 7.7 g/dl Albumin 4.5 g/dl Globulin 3.20 g/dl Albumin/Globulin Ratio 1.40 Lipase 77 U/L White Blood Count 8.0 10^3/ul Red Blood Count 4.77 10^6/ul Hemoglobin 13.5 g/dl Hematocrit 41.3 % Mean Corpuscular Volume 86.6 fl Mean Corpuscular Hemoglobin 28.3 pg Mean Corpuscular 32.7 g/dl Hemoglobin Concent Red Cell Distribution Width 13.5 % Platelet Count 423 10^3/UL Mean Platelet Volume 9.0 fl Immature Granulocytes % 0.100 % Neutrophils % 66.3 % Lymphocytes % 22.5 % Monocytes % 9.3 % Eosinophils % 1.3 % Basophils % 0.5 % Nucleated Red Blood Cells % 0.0 /100WBC Immature Granulocytes # 0.010 10^3/ul Neutrophils # 5.3 10^3/ul Lymphocytes # 1.8 10^3/ul Monocytes # 0.7 10^3/ul Eosinophils # 0.1 10^3/ul Basophils # 0.0 10^3/ul Nucleated Red Blood Cells # 0.0 10^3/ul Urine Color STRAW Urine Clarity CLEAR Urine pH 8.0 Urine Specific [place] 1.003 Urine Ketones NEGATIVE mg/dL Urine Nitrite NEGATIVE mg/dL Urine Bilirubin NEGATIVE mg/dL Urine Urobilinogen NEGATIVE mg/dL Urine Leukocyte Esterase NEGATIVE Anu/ul Urine Hemoglobin NEGATIVE mg/dL Urine Glucose NEGATIVE mg/dL Urine Total Protein NEGATIVE mg/dl Current Medications Medications Dose Sig/Soham Start Time Status Last (Trade) Ordered Route PRN Stop Time Admin Dose Reason Admin Famotidine 20 mg ONCE STAT 02/14/19 DC 02/14/19 (Pepcid) PO 08:43 09:09 02/14/19 08:45 40 ml ONCE STAT 02/14/19 DC 02/14/19 Miscellaneous PO 08:43 09:09 Medication 02/14/19 08:45 (Gi Cocktail (2)) Belladonna/ 2 tab ONCE STAT 02/14/19 DC 02/14/19 Phenobarbital PO 08:43 09:09 () 02/14/19 08:45 Procedures/MDM DIAGNOSTIC IMAGING REPORT Patient: HIRAM JONAS : 1940 Age: 78 Sex: F MR #: [id number] DOS: 02/14/1909 Ordering MD: NIKKI ANTHONY MD Location: E/R Room/Bed: PROCEDURE: XR Abdomen. CLINICAL INDICATION: Abdominal pain TECHNIQUE: Single frontal view of the abdomen was obtained. COMPARISON: 02/05/2019, 02/06/2019 FINDINGS: The bowel gas pattern is normal. There is no evidence of obstruction. There are no air-fluid levels. There are no abnormal calcifications overlying the urinary tracts. The soft tissues are unremarkable. The osseous structures are unremarkable. The nasogastric tube has been removed. RPTAT: AA IMPRESSION: Unremarkable abdomen radiograph. .Chemo Reynoso MD, Date Time Electronically viewed and signed by .Chemo Reynoso MD, MD on 02/14/2019 09:32 .S/ CC: NIKKI ANTHONY MD [id number] DIAGNOSTIC IMAGING REPORT Patient: HIRAM JONAS : 1940 Age: 78 Sex: F MR #: [id number] DOS: 02/14/19 0819 Ordering MD: NIKKI ANTHONY MD Location: E/R Room/Bed: PROCEDURE: XR Chest. CLINICAL INDICATION: chest pain TECHNIQUE: Single frontal view of the chest was obtained COMPARISON: 02/06/2019 FINDINGS: The heart and mediastinum are within normal limits. The lungs are clear. There is no pleural effusion or pneumothorax. RPTAT: AA IMPRESSION: No acute disease. .Chemo Reynoso MD, MD Date Time Electronically viewed and signed by .Chemo Reynoso MD, MD on 02/14/2019 09:31 .S/ CC: NIKKI ANTHNOY MD [id number] DIAGNOSTIC IMAGING REPORT Patient: HIRAM JONAS : 1940 Age: 78 Sex: F MR #: [id number] DOS: 02/14/19 1018 Ordering MD: YASSINE ORTIZ Location: E/R Room/Bed: PROCEDURE: US Abdomen (right upper quadrant). CLINICAL INDICATION: Abdominal pain TECHNIQUE: Multiple real-time longitudinal and transverse images of the right upper quadrant of the abdomen were acquired utilizing a curved array transducer. Images were reviewed on a high-resolution PACS workstation. COMPARISON: None FINDINGS: The liver is normal in size and echogenicity without focal mass or intrahepatic biliary dilatation. The gallbladder is normal. There is no pericholecystic fluid or gallbladder wall thickening or gallstones. No intra or extrahepatic biliary dilatation is seen. The common bile duct measures 3.5 mm in maximal dimension. The visualized portions of the pancreas are unremarkable with obscuration of the tail of the pancreas. No free fluid is identified. The right kidney measures 10.1 cm in length. Simple-appearing right renal cysts are present measuring up to 3.1 cm. There is normal echogenicity within the right kidney. There is no perinephric fluid collection. No hydronephrosis, mass, or calculus is seen. IMPRESSION: Simple-appearing right renal cysts. Otherwise, unremarkable right upper quadrant ultrasound. RPTAT: JJ .Raymond Kc MD, MD Date Time Electronically viewed and signed by .Raymond Kc MD, MD on 02/14/2019 11:05 .A/ CC: YASSINE ORTIZ [id number] Chest X-ray 1V Interpreted by me: Soft Tissue: No acute abnormalities Bones: No acute abnormalities Mediastinum/Cardiac Silhouette/Lungs: No acute abnormalities X-ray Abdomen 1V Interpreted by me: Free Air: None Bowel Gas: Nonspecific Soft Tissue: Normal EKG: Rate/Rhythm: Normal Sinus Rhythm QRS, ST, T-waves: No changes consistent w/ acute ischemia Impression: No evidence of ischemia or arrhythmia KUB and gallbladder ultrasound were performed, results are within normal limits. In addition patient denies any vomiting and is been having normal bowel movements. Patient's presentation is consistent with GERD. Patient was given GI cocktail and Pepcid in the ER and stated that it resolves her symptoms. I have low suspicion for bowel obstruction, surgical abdomen, appendicitis, cholecystitis, or any other emergent abdominal condition. In addition, patient's EKG and troponin were within normal limits. Therefore I have low suspicion for RI, AAA, PE, or any other emergent cardiothoracic condition. Patient discharged with Rx for Pepcid as well as Mylanta. Patient discharged with strict ER precautions. Patient advised to follow up with PMD. All questions answered at discharge. Departure Diagnosis: Primary Impression: Abdominal pain Abdominal location: epigastric Qualified Codes: R10.13 - Epigastric pain Condition: Stable YASSINE ORTIZ Feb 14, 2019 08:52
[2019-02-14] MEDS ORDERED: FAMO-96 PO (10:09)
[2019-02-14] MEDS ORDERED: MAG-19 PO (10:09)
[2019-02-14 11:29] VITALS: BP 142/75; PULSE 94; RESP 18
== END 2019-02-14 11:47 | disposition home or self-care (01) ==
LOC: E/R 08:00
DX: R10.13 Epigastric pain (principal); I10 Essential (primary) hypertension; Z79.82 Long term (current) use of aspirin
CPT/HCPCS: 71045; 74018; 76705; 80053; 81003; 83690; 84484; 85025; 85610; 87086; 93005; Z7502; Z7610

== ENCOUNTER 2019-05-01 10:22 | Day surgery (SDC) | payer OTHER ==
[~2019-05-01] VITALS: Ht 149.9 cm; Wt 69.7 kg
[~2019-05-01 10:22] MED LIST changes: +FAMO-96 PO; +MAG-19 PO
[2019-05-01] MEDS ORDERED: PROTONIX (11:36)
[2019-05-01 11:59] VITALS: Ht 149.9 cm; Wt 69.7 kg
--- NOTE | 2019-05-01 12:52 | PREAC ---
Date/Time of Note Date/Time of Note DATE: 05/01/19 TIME: 12:49 Anesthesia Eval and Record Evaluation Time Pre-Procedure Interview DATE: 05/01/19 TIME: 12:49 Age 78 Sex female NPO: 8 hrs Preoperative diagnosis Reflux, Abdominal Pain Planned procedure EGD, Colonoscopy Past Medical History Past Medical History: Includes Cardio: HTN GI: Other (Diverticulitis) Surgery & Anesthesia Issues No known issue Meds Anticoagulation: No Beta Jailyn within 24 hr: No Reason Beta Jailyn not given: Pt. not on B-Jailyn Active Scripts Aspirin Delayed Release (Aspirin Delayed Release) 81 Mg Tablet., 81 MG PO BID for 30 Days Prov:ROSCOE YANES MD 12/26/18 Reported Medications [Protonix] No Conflict Check 05/01/19 Losartan Potassium* (Losartan Potassium*) 50 Mg Tablet, 50 MG PO DAILY, TAB 12/24/18 Hydrochlorothiazide* (Hydrochlorothiazide*) 25 Mg Tab, 25 MG PO DAILY, #30 TAB 12/24/18 Amlodipine Besylate* (Norvasc*) 5 Mg Tablet, 5 MG PO DAILY, TAB 12/24/18 Discontinued Reported Medications Magaldrate/Simethicone* (Mag-Al Plus Suspension*) 30 Ml Oral.susp, 30 ML PO Q6H PRN for GASTROINTESTINAL UPSET, ML 02/05/19 [place]-3 Acid Ethyl Esters (Lovaza) 1 Gm Capsule, 4 GM PO DAILY, CAP 02/05/19 Omeprazole* (Omeprazole*) 20 Mg Capsule.dr, 20 MG PO DAILY, #30 CAP 02/05/19 Discontinued Scripts Magaldrate/Simethicone* (Mylanta*) 355 Ml Susp, 30 ML PO QID PRN for GASTROINTESTINAL UPSET, #1 BOTTLE Prov:YASSINE ORTIZ 02/14/19 Famotidine* (Pepcid*) 20 Mg Tablet, 20 MG PO BID for GERD for 10 Days, TAB Prov:YASSINE ORTIZ 02/14/19 Meds reviewed: Yes Allergies Coded Allergies: morphine (Unverified Allergy, Mild, RASH, 02/14/19) Allergies Reviewed: Yes Labs/Studies Labs Reviewed: Reviewed by anesthesiologist test: N/A Pre-procedure Exam Airway: Adequate mouth opening Mallampati: Mallampati II Teeth: Normal Lung: Normal Heart: Normal ASA Physical Status ASA physical status: 2 Emergency: None Planned Anesthetic General/MAC: MAC Pre-operative Attestations Prior to commencing anesthesia and surgery, the patient was re-evaluated, there was verification of: *The patient's identity *The results of appropriate recent lab work and preoperative vital signs *The above evaluation not changing prior to induction *Anesthetic plan, risk benefits, alternative and complications discussed with patient/family; questions answered; patient/family understands, accepts and wishes to proceed. GENA KASPER MD May 01, 2019 12:52
[2019-05-01] MEDS ORDERED: PROPOFOL 20 ML ONE (12:56)
[2019-05-01 12:59] VITALS: BP 134/70; PULSE 65; RESP 13
--- NOTE | 2019-05-01 13:37 | PAC ---
Date/Time of Note Date/Time of Note DATE: 05/01/19 TIME: 13:37 Post-Anesthesia Notes Post-Anesthesia Note Last documented vital signs VSS Activity: WNL Respiratory function: WNL Cardiovascular function: WNL Mental status: Baseline Pain reasonably controlled: Yes Hydration appropriate: Yes Nausea/Vomiting absent: Yes GENA KASPER MD May 01, 2019 13:37
[2019-05-01 14:01] VITALS: BP 138/60; PULSE 75; RESP 16
== END 2019-05-01 14:27 | disposition home or self-care (01) ==
LOC: GIL 10:22
PROVIDERS: ATTEND Internal Medicine Gastroenterology
DX: K44.9 Diaphragmatic hernia without obstruction or gangrene (principal); K21.9 Gastro-esophageal reflux disease without esophagitis; K29.50 Unspecified chronic gastritis without bleeding
CPT/HCPCS: 43239; 88305; 88312; Z7610